=== PATIENT | male | born 1950 | race Caucasian/White ===

== ENCOUNTER 2023-09-22 12:29 | Inpatient (IN) | payer MEDICARE, MEDICAID, SELFPAY ==
[2023-09-22] VITALS (9 sets, daily range): BP systolic 109–176; BP diastolic 61–147; PULSE 100–126; RESP 20–34; TEMP 36.6–36.8; O2SAT 91–95; BMI 24.3; BMI 27.6
--- NOTE | 2023-09-22 12:37 | XR_ITS ---
WS: [id number] Exam: XR chest 1V portable [id number] Date/Time of Exam: 09/22/2023 1:03 PM Reason For Exam: sob No priors. Interstitial and airspace infiltrates in the mid and lower LEFT lung and also of the RIGHT basal bucky on. Questionable discrete nodule in the mid LEFT lung. The lungs are fully expanded. No pleural effus ions. Normal cardiomediastinal silhouette. Bony structures are intact. IMPRESSION: 1. Bilateral airspace and interstitial infiltrates as noted above. These changes may represent active pneumonia but could also be chronic. No comparisons available. 2. Discrete 15 mm nodular density in the mid LEFT lung. Recommendations: A detailed PA and lateral chest in 10 days to 2 weeks would be recommended for [facility] er work-up. Ultimately, chest CT may be necessary for further evaluation.
--- NOTE | 2023-09-22 12:43 | ED_ITS ---
HPI - Abdominal Pain 2 General: Chief Complaint: Abdominal Pain Stated Complaint: ABD PAIN Time Seen by Provider: 09/22/23 12:30 Source: patient Mode of arrival: ambulatory Limitations: no limitations History of Present Illness: 73-year-old male is here from nursing me he has a history of dementia per halfway patient complained of some abdominal pain at the halfway here patient has no complaints he is able to tell me his name and the year. Patient is hypoxic here with some tachycardia he denies shortness of breath but he did get short of breath when he walked to the cot history is not really reliable due to his dementia Associated Symptoms: Denies chills, diarrhea, fever(s), nausea and vomiting Review of Systems 2 Const: Denies: fever(s), chills, body aches or change in appetite ENMT: Denies: throat pain or dental pain Card: Denies: chest pain Resp: Denies: dyspnea GI: Denies: abdominal pain, nausea, vomiting or diarrhea Musc: Denies: neck pain or back pain Skin/Breast: Denies: rash Neuro: Denies: headache(s) PFSH ED 2 PFSH: Medical History (Updated 09/22/23 @ 15:25 by George Blum MD) History of COPD History of gastroesophageal reflux (GERD) Surgical History (Updated 09/22/23 @ 15:26 by George Blum MD) No pertinent past surgical history Family History (Updated 09/22/23 @ 15:26 by George Blum MD) Father Accident Social History Smoking and tobacco/nicotine status: former use of tobacco/nicotine Alcohol intake: never Substance/Drug Use: never Physical Exam 2 Const: COMMON NORMALS: no acute distress, patient oriented x3 and healthy appearing HENMT: COMMON NORMALS: normocephalic and atraumatic HEAD & SCALP: n ormocephalic and atraumatic Neck/C-Spine: COMMON NORMALS: full ROM and supple Chest: COMMONS NORMALS: normal inspection of the chest Resp: COMMON NORMALS: normal respiratory effort Cardio: COMMON NORMALS: regular rhythm and No murmurs present (Cardio) R ATE: tachycardic RHYTHM: regular rhythm GI: COMMON NORMALS: Normal to inspection, nondistended, normoactive bowel sounds present, Soft to palpation, non-tender and no masses PALPATION: Yes Soft to palpation Extremity: COMMON NORMALS: normal to inspection and full ROM Neuro: COMMON NORMALS: patient oriented x3, moves all extremities and no focal motor deficits Psych: COMMON NORMALS: mental status grossly normal, Normal thought process present and cooperative THOUGHT PROCESS: Normal thought process present Skin: COMMON NORMALS: no rashes or lesions noted and no wounds GENERAL SKIN EXAM: no rashes or lesions noted Course 2 Vital Signs: Vital signs: Vital Signs Temperature 98.3 F 09/22/23 12:30 Pulse Rate 121 H 09/22/23 15:01 Respiratory Rate 28 H 09/22/23 14:38 Blood Pressure 176/147 09/22/23 15:01 Pulse Oximetry 91 09/22/23 15:01 Oxygen Delivery Me thod Room Air 09/22/23 15:01 MDM - Abdominal Pain Medical Decision Making Patient presents here from halfway he is found to have pneumonia he is requiring oxygen here as well with an elevated white count did start him on antibiotics spoke to the hospitalist and will admit. Medical Records I reviewed the patient's medical records. Lab Data I reviewed the patient's lab results. 09/22/23 12:49 09/22/23 12:49 Labs/Radiology: Laboratory Results WBC 17.47 10^3/uL (3.29-11.43) H 09/22/23 12:49 RBC 4.41 10^6/uL (3.85-5.65) 09/22/23 12:49 Hgb 12.80 g/dL (11.27-16.99) 09/22/23 12:49 Hct 38.1 % (37-53) 09/22/23 12:49 MCV 86.4 fl (82-101) 09/22/23 12:49 MCH 29.0 pg (27-33) 09/22/23 12:49 MCHC 33.6 g/dL (30-55) 09/22/23 12:49 RDW 14.1 % (12.1-15.1) 09/22/23 12:49 Plt Count 332 10^3/cmm (157-399) 09/22/23 12:49 MPV 9.9 fL (7.4-10.4) 09/22/23 12:49 Neut % (Auto) 81.7 % 09/22/23 12:49 Lymph % (Auto) 5.0 % 09/22/23 12:49 Cottle % (Auto) 8.0 % 09/22/23 12:49 Eos % (Auto) 0.5 % 09/22/23 12:49 Baso % (Auto) 0.3 % 09/22/23 12:49 Neut # (Auto) 14.28 10^3/uL (1.8-7.7) H 09/22/23 12:49 Lymph # (Auto) 0.9 10^3/uL (0.8-4.8) 09/22/23 12:49 Cottle # (Auto) 1.4 10^3/uL (0.2-0.9) H 09/22/23 12:49 Eos # (Auto) 0.1 10^3/uL (0.0-0.8) 09/22/23 12:49 Baso # (Auto) 0.1 10^3/uL (0.0-0.1) 09/22/23 12:49 Nucleated RBC % (auto) 0 % 09/22/23 12:49 Nucleated RBCs # 0.0 /100WBC 09/22/23 12:49 PT 14.20 SECONDS (12.1-14.9) 09/22/23 12:49 INR 1.07 (0.8-1.2) 09/22/23 12:49 D-Dimer 3.81 ug/mLFEU (0-0.59) H 09/22/23 12:49 Specimen Type Arterial 09/22/23 13:06 Sample Site Radial, left 09/22/23 13:06 ABG pH 7.50 (7.35-7.45) H 09/22/23 13:06 ABG pCO2 28.8 mmHg (35-45) L 09/22/23 13:06 ABG pO2 56.3 mmHg (80.0-100.0) L 09/22/23 13:06 ABG PO2/FiO2 Ratio 0 09/22/23 13:06 ABG HCO3 22.7 mmol/L (22-26) 09/22/23 13:06 ABG Base Excess 0.5 mmol/L (-2.0-2.0) 09/22/23 13:06 Joaquin Test Pos 09/22/23 13:06 Hematocrit 39.3 % (42-52) L 09/22/23 13:06 O2 Delivery Device Room air 09/22/23 13:06 FiO2 21.0 % 09/22/23 13:06 Urology Teacher ID Cak 09/22/23 13:06 Sodium 137 mmol/L (136-145) 09/22/23 12:49 Potassium 4.7 mmol/L (3.5-5.1) 09/22/23 12:49 Chloride 101 mmol/L (98-107) 09/22/23 12:49 Carbon Dioxide 23 mmol/L (22-29) 09/22/23 12:49 Anion Gap 17.7 (5-19) 09/22/23 12:49 BUN 12 mg/dL (8-23) 09/22/23 12:49 Creatinine 0.7 mg/dL (0.7-1.2) 09/22/23 12:49 GFR Calculation Not Reportable 09/22/23 12:49 Glucose 195 mg/dL (65-115) H 09/22/23 12:49 Calculated Osmolality 289 mOsm/kg (285-295) 09/22/23 12:49 Calcium 9.0 mg/dL (8.5-10.5) 09/22/23 12:49 Total Bilirubin 0.9 mg/dL (0.15-1.2) 09/22/23 12:49 AST 5 U/L (0-40) 09/22/23 12:49 ALT 22 U/L (0-41) 09/22/23 12:49 Alkaline Phosphatase 255 U/L (40-130) H 09/22/23 12:49 NT-Pro-B Natriuret Pep 205 pg/mL (0-125) H 09/22/23 12:49 Total Protein 7.2 g/dL (6.6-8.7) 09/22/23 12:49 Albumin 3.1 g/dL (3.5-5.2) L 09/22/23 12:49 Globulin 4.1 g/dL (1.3-4.6) 09/22/23 12:49 Lipase 35 U/L (13-60) 09/22/23 12:49 TSH 1.04 uIU/mL (0.27-4.20) 09/22/23 12:49 All radiology interpretation(s) finalized by discharge EKG Data EKG 1: I personally reviewed and interpreted this EKG as follows: EKG interpretation date: 09/22/23 EKG interpretation time: 13:09 Interpretation: sinus tach hr 121 qrs 83 qtc 389 Discharge Plan Discharge Condition: Stable Prescriptions: No Action acetaminophen 325 mg Tablet 325 mg PO QID PRN (Reason: Pain) Provera 5 mg Tablet 5 mg PO DAILY melatonin 3 mg Tablet 3 mg PO BEDTIME famotidine 20 mg tablet 20 mg PO DAILY amitriptyline 25 mg tablet 25 mg PO QPM Milk of Magnesia 400 mg/5 mL Suspension 15 ml PO DAILY PRN (Reason: Constipation) Dulcolax (bisacodyl) 10 mg Suppository 10 mg [place] DAILY PRN (Reason: Constipation) Dulcolax (bisacodyl) 5 mg Tablet,Delayed Release (Dr/Ec) 5 mg PO DAILY PRN (Reason: Constipation) Remeron 15 mg Tablet 15 mg PO QPM Mylanta 200-200-20 mg/5 mL Suspension 15 ml PO QID PRN (Reason: Constipation) Rx Instructions: administer between meals and at bedtime Miralax 17 gram/dose Powder 4 g PO DAILY hydroxyzine pamoate 25 mg capsule 25 mg PO BID Vitamin D3 25 mcg (1,000 unit) Capsule 25 mcg PO DAILY magnesium 200 mg Tablet 400 mg PO DAILY CoQ-10 100 mg Capsule 100 mg PO DAILY Fish Oil 300-1,000 mg Capsule 1 cap PO DAILY Mucinex 600 mg Tablet Extended Release 12hr 600 mg PO Q12H PRN (Reason: Congestion) Coding Level of Care Code ED Medical Management Specialist for Octaviano Horton
[2023-09-22 13:01] LABS: Basophils # 0.1 10^3/uL (0.0-0.1); Basophils % 0.3 %; Eosinophils # 0.1 10^3/uL (0.0-0.8); Eosinophils % 0.5 %; Hematocrit 38.1 % (37-53); Lymphocytes # 0.9 10^3/uL (0.8-4.8); Mean Corpuscular HGB Conc 33.6 g/dL (30-55); Mean Corpuscular Volume 86.4 fl (82-101); Mean Platelet Volume 9.9 fL (7.4-10.4); Monocytes # 1.4 10^3/uL (0.2-0.9); Neutrophils # 14.28 10^3/uL (1.8-7.7); Neutrophils % 81.7 %; Nucleated Red Blood Cells % 0 %; Platelet Count 332 10^3/cmm (157-399); Red Blood Count 4.41 10^6/uL (3.85-5.65); Red Cell Distribution Width 14.1 % (12.1-15.1); White Blood Count 17.47 10^3/uL (3.29-11.43)
--- NOTE | 2023-09-22 13:09 | ECG_ITS ---
[facility] Test Date: 2023-09-22 Pat Name: Diogo Suarez Department: Room: Gender: Male Patient Care Associate: : 1950 Requested By: Kyler Matos Order Number: [id number] Giorgi MD: Salvador Yeh M.D. Measurements Intervals [place] Rate: 121 P: 51 TX: 154 QRS: -2 QRSD: 83 T: 61 QT: 317 QTc: 451 Interpretive Statements SINUS TACHYCARDIA No previous ECG available for comparison Electronically Signed On 09-22-2023 16:14:06 CDT by Salvador Yeh M.D. [id number] f
[2023-09-22 13:16] LABS: INR 1.07 (0.8-1.2)
[2023-09-22 13:17] LABS: ABG PCO2 28.8 mmHg (35-45); Arterial Blood Gas Hematocrit 39.3 % (42-52); Base Excess ABG 0.5 mmol/L (-2.0-2.0); Blood Gas Allen Test Pos; Blood Gas Operator Identificat CAK; Blood Gas Sample Site Radial, left; Blood Gas Sample Type Arterial; HCO3 ABG 22.7 mmol/L (22-26); Oxygen Device ROOM AIR; PO2 ABG 56.3 mmHg (80.0-100.0); PO2 FiO2 Ratio Arterial Blood 0
[2023-09-22 13:26] LABS: D Dimer 3.81 ug/mLFEU (0-0.59)
--- NOTE | 2023-09-22 13:28 | CT_ITS ---
WS: [id number] CTA OF THE CHEST WITH PULMONARY EMBOLISM PROTOCOL TECHNIQUE: High-resolution contrast enhanced CTA of the chest with coronal and sagittal reformatted i mages with pulmonary embolism protocol. MIP images are also reviewed. CLINICAL INFORMATION: sob COMPARISON: None. DLP: 353.[address] scans at [facility] use at least one of these dose optimization techniques: automated e xposure control; mA and/or kV adjustment per patient size (includes targeted exams where dose is matc hed to clinical indication); or iterative reconstruction. FINDINGS: Some images degraded by beam hardening artifact. Proximal main pulmonary arteries are normal. Normal segmental and subsegmental pulmonary arteries. No evidence of pulmonary embolus. Normal caliber thoracic aorta. Aortic calcification. Coronary calcifi cation. Few prominent paratracheal lymph nodes likely reactive. No lymphadenopathy. No axillary lymph adenopathy. Small esophageal hiatal hernia. Adrenal glands are normal. Celiac and SMA are patent. Mild thoracic k yphosis. Advanced chronic emphysematous changes. Patchy interstitial infiltrates in the LEFT greater than RIGHT lower lobes. Recommend correlation for pneumonia. Fibrotic appearing infiltrates in the RI GHT upper lobe anteriorly and RIGHT middle lobe. Noncalcified subpleural nodule RIGHT lower lobe valerio uring 5 mm. IMPRESSION: 1. No evidence of pulmonary embolus. 2. Advanced chronic emphysematous changes with fibrotic appearing interstitial infiltrates in the LE FT greater than RIGHT lower lobes and RIGHT middle lobe. Recommend correlation for pneumonia. Conside r pulmonary consultation for interstitial lung disease. 3. Noncalcified subpleural nodule RIGHT lower lobe measuring 5 mm. Recommend 12-month follow-up ches t CT. 4. A few reactive paratracheal lymph nodes. 5. Small esophageal hiatal hernia. 6. No other acute findings.
[2023-09-22 13:38] LABS: Alanine Aminotransferase 22 U/L (0-41); Albumin Level 3.1 g/dL (3.5-5.2); Alkaline Phosphatase 255 U/L (40-130); Anion Gap 17.7 (5-19); Blood Urea Nitrogen 12 mg/dL (8-23); Carbon Dioxide 23 mmol/L (22-29); Chloride 101 mmol/L (98-107); Creatinine Clr Calc Pharmacy 82.7215; Globulin 4.1 g/dL (1.3-4.6); Glucose 195 mg/dL (65-115); Lipase 35 U/L (13-60); NT Pro B Type Natriuretic Pept 205 pg/mL (0-125); Osmolality Calculated 289 mOsm/kg (285-295); Potassium 4.7 mmol/L (3.5-5.1); Sodium 137 mmol/L (136-145); Thyroid Stimulating Hormone 1.04 uIU/mL (0.27-4.20); Total Bilirubin 0.9 mg/dL (0.15-1.2); Total Protein 7.2 g/dL (6.6-8.7)
[2023-09-22 13:47] LABS: Aspartate Amino Transferase 5 U/L (0-40)
[2023-09-22] MEDS: sodium chloride 0.9% 1,000 ML 999 ML IV (13:47)
[2023-09-22] MEDS: cefTRIAXone 1,000 MG in sodium chloride 0.9% (plus) 50 ML 100 MG IV (13:48)
[2023-09-22] MEDS: iohexol 350 mg/mL 500 mL Btl (per mL) IV (14:14)
[2023-09-22] MEDS: ipratropium-albuterol 3 mL Neb INHALATION ×2 (14:37→19:56)
[2023-09-22] MEDS: azithromycin 500 MG in sodium chloride 0.9% 250 ML 250 MG IV (14:59)
--- NOTE | 2023-09-22 15:22 | P.HP_ITS ---
Providers/Chief Complaint 2 Chief Complaint: ABD PAIN History of Present Illness Diogo Suarez is a 73 year old male with past medical history of smoking, history of COPD, no history of heart disease no history of stroke no history of diabetes, recently a resident at [facility] who presents [facility] due to shortness of breath, fatigue, malaise, abdominal pain. Currently patient is short of breath, tachypneic, tachycardic, nasal flaring, intercostal retractions, has diffuse wheezing, he is on room air, saturating in the high 90s, hypertensive blood pressures 170s over 100s, has received hydralazine, patient tells me that he is here in the hospital as he is felt increasingly short of breath, he also complains of abdominal pain, feeling nauseous, no diarrhea, no constipation, no bloody or black stools, Review of Systems 2 Const: Reports: fever(s), chills, fatigue and malaise Card: Reports: palpitations; Denies: chest pain Resp: Reports: dyspnea and non-productive cough GI: Reports: abdominal pain, nausea and vomiting; Denies: diarrhea, bloating, pain on defecation, hematochezia or melena : Denies: flank pain Musc: Denies: back pain Neuro: Denies: headache(s) Endo: Denies: polyuria Medications/Allergies Home Medications Medication Instructions Recorded Confirmed Last Taken Type acetaminophen 325 mg tablet 325 mg PO QID PRN Pain 09/22/23 09/22/23 Unknown History aluminum-mag hydroxide-simethicone 15 ml PO QID PRN Constipation 09/22/23 09/22/23 Unknown History 200 mg-200 mg-20 mg/5 mL oral susp amitriptyline 25 mg tablet 25 mg PO QPM 09/22/23 09/22/23 09/21/23 History bisacodyl 10 mg rectal suppository 10 mg SD DAILY PRN Constipation 09/22/23 09/22/23 Unknown History (Dulcolax (bisacodyl)) bisacodyl 5 mg tablet,delayed 5 mg PO DAILY PRN Constipation 09/22/23 09/22/23 Unknown History release (Dulcolax (bisacodyl)) cholecalciferol (vitamin D3) 25 25 mcg PO DAILY 09/22/23 09/22/23 09/22/23 History mcg (1,000 unit) capsule (Vitamin D3) coenzyme Q10 100 mg capsule 100 mg PO DAILY 09/22/23 09/22/23 09/22/23 History (CoQ-10) famotidine 20 mg tablet 20 mg PO DAILY 09/22/23 09/22/23 09/22/23 History guaifenesin 600 mg tablet, 600 mg PO Q12H PRN Congestion 09/22/23 09/22/23 09/22/23 History extended release 12 hr (Mucinex) hydroxyzine pamoate 25 mg capsule 25 mg PO BID 09/22/23 09/22/23 09/22/23 History magnesium 200 mg tablet 400 mg PO DAILY 09/22/23 09/22/23 09/22/23 History magnesium hydroxide 400 mg/5 mL 15 ml PO DAILY PRN Constipation 09/22/23 09/22/23 Unknown History oral suspension (Milk of Magnesia) medroxyprogesterone 5 mg tablet 5 mg PO DAILY 09/22/23 09/22/23 09/22/23 History (Provera) melatonin 3 mg tablet 3 mg PO BEDTIME 09/22/23 09/22/23 09/21/23 History mirtazapine 15 mg tablet (Remeron) 15 mg PO QPM 09/22/23 09/22/23 09/21/23 History omega 6-zvs-tvh-fish oil 300 1 cap PO DAILY 09/22/23 09/22/23 09/21/23 History mg-1,000 mg capsule (Fish Oil) polyethylene glycol 3350 17 4 g PO DAILY 09/22/23 09/22/23 09/22/23 History gram/dose oral powder (Miralax) Allergies Allergy/AdvReac Type Severity Reaction Status Date / Time No Known Allergies Allergy Verified 09/22/23 13:47 PFSH Acute 2 PFSH: Medical History (Updated 09/22/23 @ 15:29 by George Blum MD) History of COPD History of gastroesophageal reflux (GERD) Surgical History (Updated 09/22/23 @ 15:26 by George Blum MD) No pertinent past surgical history Family History (Updated 09/22/23 @ 15:26 by George Blum MD) Father Accident Social History (Updated 09/22/23 @ 15:26 by George Blum MD) Smoking and tobacco/nicotine status: former use of tobacco/nicotine Alcohol intake: never Substance/Drug Use: never Vitals/I&O/Wt Last Vital Signs Temp 98.3 F 09/22/23 12:30 Pulse 121 H 09/22/23 15:01 Resp 28 H 09/22/23 14:38 BP 176/147 09/22/23 15:01 Pulse Ox 91 09/22/23 15:01 O2 Del Method Room Air 09/22/23 15:01 09/22/23 09/22/23 09/22/23 06:59 14:59 22:59 Intake Total 50 / 50 Balance 50 / 50 Weight last 48 hrs Weight 72.575 kg Physical Exam 2 Const: COMMON NORMALS: no acute distress and patient oriented x3 HENMT: COMMON NORMALS: normocephalic HEAD & SCALP: normocephalic Eye: COMMON NORMALS: Equal, round and reactive pupils present and EOMs intact bilaterally Neck/C-Spine: COMMON NORMALS: no JVD Lymph: LYMPHATIC: no lymphadenopathy noted Resp: EFFORT & INSPECTION: Yes abnormal respiratory pattern, Yes tachypneic, Yes respiratory distress, Yes retractions, Yes uses accessory muscles and Yes audible wheezes AUSCULTATION: crackles and wheezes OTHER: mild respiratory distress, suprasternal retractions, intercostal retractions, tachypnea, Cardio: COMMON NORMALS: no JVD, regular rhythm, S1 normal heart sound present and S2 normal heart sound present RATE: tachycardic RHYTHM: regular rhythm HEART SOUNDS: S1 normal heart sound present and S2 normal heart sound present GI: OTHER: Abdomen soft, distended, good bowel sounds, no guarding, no rebound, rigidity, has diffuse tenderness Extremity: COMMON NORMALS: no calf tenderness and no pedal edema Neuro: COMMON NORMALS: patient oriented x3, CN's II-XII intact bilaterally, moves all extremities and no focal motor deficits Psych: COMMON NORMALS: mental status grossly normal Data 09/22/23 12:49 09/22/23 12:49 Micro: Microbiology 09/22/23 13:47 Blood Culture - Preliminary Blood SPECIMEN COLLECTED 09/22/23 13:44 Blood Culture - Preliminary Blood SPECIMEN COLLECTED A&P Assessment and plan (1) Acute respiratory failure: (2) Pulmonary fibrosis: (3) Pneumonia: (4) Hypertensive urgency: (5) Abdominal pain: Plan Acute respiratory distress ? Secondary to pneumonia, COPD exacerbation, pulmonary fibrosis exacerbation ? Clinically looks in respiratory distress, with tachycardia heart rates in the 120s, respiratory 28, intercostal retractions, suprasternal retractions, nasal flaring, short of breath with a few words, sitting up to the side of the bed, ? ABG pH 7.5, pO2 56.3 on room air ? CT angiogram of the chest IMPRESSION: 1. No evidence of pulmonary embolus. 2. Advanced chronic emphysematous changes with fibrotic appearing interstitial infiltrates in the LEFT greater than RIGHT lower lobes and RIGHT middle lobe. Recommend correlation for pneumonia. Consider pulmonary consultation for interstitial lung disease. 3. Noncalcified subpleural nodule RIGHT lower lobe measuring 5 mm. Recommend 12-month follow-up chest CT. 4. A few reactive paratracheal lymph nodes. 5. Small esophageal hiatal hernia. 6. No other acute findings. -Prior history of COPD, ? No documented history of pulmonary fibrosis ? Plan, ? Rocephin Azithromycin ? Sputum cultures ? Blood cultures, -Troponin series ? Solu-Medrol 125 followed by 40 mg IV every 8 hours ? DuoNeb, budesonide ? Monitor respiratory status closely ? Respiratory therapy eval Hypertensive urgency, blood pressure is 176/47 when patient arrived, currently 176/70, ? Start Norvasc 10 mg p.o. daily Full code ? Lovenox for DVT prophylaxis Attestations 2 Medical Necessity Statement*: Patient requires hospitalization, inpatient, greater than 2 midnights, for acute respiratory failure, pneumonia, hypertensive urgency, abdominal pain Diagnoses Acute respiratory failure J96.00 Pulmonary fibrosis J84.10 Pneumonia J18.9 Hypertensive urgency I16.0 Abdominal pain R10.9
--- NOTE | 2023-09-22 15:23 | ECG_ITS ---
[facility] Test Date: 2023-09-22 Pat Name: Diogo Suarez Department: Room: Gender: Male Facility Sales And Admin: : 1950 Requested By: George Blum Order Number: [id number] Giorgi MD: Salvador Yeh M.D. Measurements Intervals [place] Rate: 128 P: 69 RI: 172 QRS: 24 QRSD: 97 T: 64 QT: 307 QTc: 449 Interpretive Statements SINUS TACHYCARDIA INCOMPLETE RIGHT BUNDLE BRANCH BLOCK [90+ ms QRS DURATION, TERMINAL R IN V1/V2, 40+ ms S IN I/aVL/V4/V5/V6] Compared to ECG 09/22/2023 13:09:34 Incomplete right bundle-branch block now present Electronically Signed On 09-22-2023 16:13:19 CDT by Salvador Yeh M.D. [id number]
[2023-09-22] MEDS: hyDRALAzine 20 mg/mL INJ 1 mL 10 MG IVP (15:24)
--- NOTE | 2023-09-22 15:28 | CTR_ITS ---
PROCEDURE INFORMATION: Exam: CT Abdomen And Pelvis Without Contrast Exam date and time: 09/22/2023 3:35 PM Age: 73 years old Clinical indication: Bloating; Additional info: Abdominal distention TECHNIQUE: Imaging protocol: Computed tomography of the abdomen and pelvis without contrast. Radiation optimization: All CT scans at this facility use at least one of these dose optimization techniques: automated exposure control; mA and/or kV adjustment per patient size (includes targeted exams where dose is matched to clinical indication); or iterative reconstruction. COMPARISON: CT angio chest PE protcl [id number] 09/22/2023 2:11 PM RADIATION DOSE METRICS: Total DLP (mGy-cm): 512.69 FINDINGS: Liver: Normal. No mass. Gallbladder and bile ducts: Normal. No calcified stones. No ductal dilation. Pancreas: Normal. No ductal dilation. Spleen: Normal. No splenomegaly. Adrenal glands: Normal. No mass. Kidneys and ureters: A 2 cm simple cyst in the lower right kidney needs no follow-up. Contrast in the kidneys and ureters makes it difficult to exclude a small renal or ureteral calculus, but the ureters are not dilated, and there is no hydronephrosis, so there is very likely not such a calculus. Otherwise, unremarkable. Stomach and bowel: Diverticula from the colon. No acute diverticulitis. Otherwise, unremarkable. Appendix: No evidence of appendicitis. Intraperitoneal space: Unremarkable. No free air. No significant fluid collection. Vasculature: Moderate amount of arterial calcification. Otherwise, grossly unremarkable. Lymph nodes: Unremarkable. No enlarged lymph nodes. Urinary bladder: Unremarkable as visualized. Reproductive: Unremarkable as visualized. Bones/joints: Mild-moderate scoliosis. Mild and moderate multilevel spondylosis. Otherwise, unremarkable. Soft tissues: Unremarkable visualized body wall. Otherwise, unremarkable soft tissues. CT/CT abdomen pelvis wo con [id number] IMPRESSION: 1. No acute findings obviously identified. 2. Additional details as above.
[2023-09-22 15:42] LABS: Erythrocyte Sedimentation Rate 30 mm/hr (0-10)
[2023-09-22 15:55] LABS: Troponin(5th) Baseline 15 ng/L (0-15)
[2023-09-22 15:58] LABS: Lactic Sepsis W/Reflex 2.1 mmol/L (0.5-2.2)
[2023-09-22 16:04] LABS: Procalcitonin 0.39 ng/mL (0-0.5)
--- NOTE | 2023-09-22 16:31 | PC.NURSE ---
Report was called to Jennifer WALLS on Med-Surg. All questions and concerns were addressed at time of report.
[2023-09-22] MEDS: mirtazapine 15 mg Tablet PO (17:19)
[2023-09-22] MEDS: amlodipine 10 mg Tablet PO (17:19)
[2023-09-22] MEDS: amitriptyline 25 mg Tablet PO (17:19)
[2023-09-22] MEDS: enoxaparin 40 mg/0.4 mL Syringe SUBCUT (17:20)
[2023-09-22] MEDS: methylPREDNISolone sod succ 125 mg/2 mL INJ IVP (17:20)
[2023-09-22] MEDS: pantoprazole 40 mg SDV IVP (17:20)
[2023-09-22 17:22] LABS: Reflex Lactate Order REFLEX LACTIC ORDERD
[2023-09-22 19:36] LABS: Lactic Acid level (Lactate) 2.8 mmol/L (0.5-2.2)
[2023-09-22] MEDS: budesonide 0.5 mg/2 mL Neb INHALATION (19:56)
[2023-09-22 20:16] LABS: Estmated Average Glucose 123; Hemoglobin A1C 5.9 % (4.0-6.0)
[2023-09-22 20:19] LABS: Adenovirus Not Detected (NOT DETECT); Chlamydia Pneumoniae Not Detected (NOT DETECT); Coronavirus 229E,HKU1,NL63,OC4 Not Detected (NOT DETECT); Human Metapneumovirus Not Detected (NOT DETECT); Human Rhinovirus/Enterovirus Not Detected (NOT DETECT); Influenza A Not Detected (NOT DETECT); Influenza A H1 Not Detected (NOT DETECT); Influenza A H1-2009 Not Detected (NOT DETECT); Influenza A H3 Not Detected (NOT DETECT); Influenza B Not Detected (NOT DETECT); Mycoplasma Pneumoniae Not Detected (NOT DETECT); Parainfluenza Virus Type 1 Not Detected (NOT DETECT); Parainfluenza Virus Type 2 Not Detected (NOT DETECT); Parainfluenza Virus Type 3 Not Detected (NOT DETECT); Parainfluenza Virus Type 4 Not Detected (NOT DETECT); Respiratory Syncytial Virus A Not Detected (NOT DETECT); SARS-COV-2 Not Detected (NOT DETECT)
[2023-09-22 20:24] LABS: Troponin 5 6HR 28.38 ng/L (0-15)
[2023-09-22 20:28] LABS: Troponin 5 6HR Delta 13.38 ng/L (0-12)
[2023-09-22 20:55] LABS: Respiratory Syncytial Virus B Detected (NOT DETECT)
[2023-09-22 21:13] LABS: Chol HDL Ratio 2.82 mg/dL (1.0-5.00); Cholesterol 93 mg/dL (0-200); HDL Cholesterol 33 mg/dL (60-100); LDL Cholesterol Calculated 46 mg/dL (50-129); LDL HDL Ratio 1.39 RATIO (0.00-3.22); Thyroid Stimulating Hormone 1.08 uIU/mL (0.27-4.20); Triglycerides 71 mg/dL (0-150)
--- NOTE | 2023-09-22 21:17 | ECG_ITS ---
[facility] Test Date: 2023-09-22 Pat Name: Diogo Suarez Department: Room: 279 Gender: Male Asset Availability Leader: : 1950 Requested By: George Blum Order Number: [id number] Giorgi MD: Salvador Yeh M.D. Measurements Intervals [place] Rate: 124 P: 63 GA: 153 QRS: 1 QRSD: 85 T: 55 QT: 330 QTc: 474 Interpretive Statements SINUS TACHYCARDIA NON-SPECIFIC ST T WAVE CHANGES No previous ECG available for comparison Electronically Signed On 09-23-2023 12:38:23 CDT by Salvador Yeh M.D. [id number]
[2023-09-23] VITALS (11 sets, daily range): BP systolic 100–126; BP diastolic 56–76; PULSE 93–122; RESP 16–26; TEMP 36.4–36.7; O2SAT 87–96
[2023-09-23] MEDS: methylPREDNISolone sod succ 40 mg/mL INJ IVP ×3 (05:47→21:33)
[2023-09-23 05:55] LABS: Basophils # 0.1 10^3/uL (0.0-0.1); Basophils % 0.3 %; Lymphocytes # 0.8 10^3/uL (0.8-4.8); Lymphocytes % 4.2 %; Mean Corpuscular HGB Conc 33.6 g/dL (30-55); Mean Corpuscular Hemoglobin 28.9 pg (27-33); Mean Corpuscular Volume 86.1 fl (82-101); Mean Platelet Volume 10.1 fL (7.4-10.4); Monocytes # 0.4 10^3/uL (0.2-0.9); Monocytes % 2.2 %; Neutrophils % 89.6 %; Nucleated Red Blood Cells % 0 %; Platelet Count 354 10^3/cmm (157-399); Red Blood Count 4.53 10^6/uL (3.85-5.65); Red Cell Distribution Width 14.2 % (12.1-15.1); White Blood Count 18.07 10^3/uL (3.29-11.43)
[2023-09-23 06:08] LABS: INR 1.13 (0.8-1.2)
[2023-09-23 06:17] LABS: Troponin T (5th) Once 19 ng/L (0-15)
[2023-09-23 06:20] LABS: Alanine Aminotransferase 16 U/L (0-41); Alkaline Phosphatase 79 U/L (40-130); Aspartate Amino Transferase 22 U/L (0-40); Blood Urea Nitrogen 13 mg/dL (8-23); Calcium 8.8 mg/dL (8.5-10.5); Carbon Dioxide 20 mmol/L (22-29); Chloride 104 mmol/L (98-107); Creatinine Clr Calc Pharmacy 85.9345; Globulin 3.3 g/dL (1.3-4.6); Glucose 168 mg/dL (65-115); Magnesium 1.9 mg/dL (1.7-2.3); Osmolality Calculated 294 mOsm/kg (285-295); Sodium 140 mmol/L (136-145); Total Bilirubin 0.8 mg/dL (0.15-1.2); Total Protein 6.3 g/dL (6.6-8.7)
[2023-09-23 06:31] LABS: NT Pro B Type Natriuretic Pept 664 pg/mL (0-125)
--- NOTE | 2023-09-23 08:56 | USCV_ITS ---
Diogo Suarez Age: 73 Gender: M : 1950 Exam Date: 09/23/2023 09:34 Ordering Phys: George Blum MD Technologist: SWETHA Exam Location: [facility] [place] Indication: NSTEMI, RBBB, SOB BP: 126 / 76 HR: 100 Rhythm: Sinus Technical Quality: Adequate MEASUREMENTS (Male / Female) Normal Values 2D ECHO LV Diastolic Diameter PLAX 3.8 cm 4.2 - 5.9 / 3.9 - 5.3 cm IVS Diastolic Thickness 0.9 cm 0.6 - 1.0 / 0.6 - 0.9 cm IVS Systolic Thickness 1.7 cm LVPW Diastolic Thickness 2.1 cm 0.6 - 1.0 / 0.6 - 0.9 cm LVPW Systolic Thickness 2.7 cm LVOT Diameter 2.0 cm LV Ejection Fraction 2D Teich 66.2 % LV Ejection Fraction MOD 2C 58.8 % LV Ejection Fraction 2C AL 58.3 % LA Diameter 2.7 cm RA Systolic Volume 4C AL 22.1 ml RA Systolic Volume 4C MOD 21.2 ml Aorta at Sinotubular Diameter 2.6 cm M-MODE LA Ao Ratio MM 1.0 AV Cusp Separation MM 1.7 cm DOPPLER AV Peak Velocity 163.0 cm/s LVOT Peak Velocity 97.0 cm/s AV Area Cont Eq vti 1.7 cm squared AV Area Cont Eq pk 1.8 cm squared MV Peak Velocity 127.0 cm/s MV Area PHT 7.0 cm squared Mitral E to A Ratio 0.7 TR Peak Velocity 207.0 cm/s TR Peak Gradient 17.1 mmHg TR Mean Velocity 176.0 cm/s TR Mean Gradient 13.0 mmHg TR Velocity Time Integral 48.7 cm TV Peak E Velocity 51.0 cm/s Right Atrial Pressure 3.0 mmHg Pulmonary Artery Systolic Pressu 20.1 mmHg PV Peak Velocity 124.0 cm/s RV Ejection Time 0.3 s FINDINGS Left Ventricle Normal left ventricular size and systolic function, EF 58%. No regional wall motion abnormalities. Grade I/IV diastolic dysfunction (abnormal relaxation filling pattern), normal to mildly elevated filling pressures. Right Ventricle The right ventricle is normal in size and function. Right Atrium The right atrium is normal in size. Left Atrium The left atrium is normal in size. Mitral Valve No gross abnormalities noted Aortic Valve Trace aortic valve regurgitation. Tricuspid Valve Trace tricuspid valve regurgitation. Estimated pulmonary artery peak systolic pressure 20 mmHg Pulmonic Valve No gross abnormalities noted Pericardium Normal pericardium without effusion. Aorta Normal ascending aorta dimension. IVC The inferior vena cava appears normal. CONCLUSIONS Normal left ventricular size and systolic function, EF 58%. No regional wall motion abnormalities. Grade I/IV diastolic dysfunction (abnormal relaxation filling pattern), normal to mildly elevated filling pressures. Trace aortic valve regurgitation. Trace tricuspid valve regurgitation. Estimated pulmonary artery peak systolic pressure 20 mmHg. There is no pericardial effusion. There are no intracardiac masses. No similar previous studies are available for comparison Dr Mer Centeno MD [facility] (Electronically Signed) Final Date: 23 September 2023 13:52 S
[2023-09-23] MEDS: ipratropium-albuterol 3 mL Neb INHALATION ×4 (09:12→20:32)
[2023-09-23] MEDS: budesonide 0.5 mg/2 mL Neb INHALATION ×2 (09:12→20:32)
--- NOTE | 2023-09-23 09:13 | PC.CHAP ---
Pastoral Care Encounter/Spiritual Assessment Type of Contact [] Declined wool spotter visit [] Patient/Family/Request visit [] Outpatient visit [] Follow-up visit [] Physician referral [] Code/Alert [] Routine visit [] Staff referral [] Actively dying [] Patient sleeping [] Family support [] [] Out of room [] Palliative care [] [] Receiving care in room [] Pre-surgical visit [] Trauma [] Long length of stay [] ICU visit [x] Other:Contact precautions. No visit. Relational/Emotional Strength [] Patient feels connected with others/family/visitors/staff [] Distress [] Loneliness/isolation [] Abandonment Spirituality of Patient [] Person of Anna [] Attends Baptism of their Anna [] Believes in Prayer [] Reads Bible or Uatsdin materials [] There are Spiritual issues to be addressed Slide Machine Tender Interventions [] Prayer [] Active listening [] Non-anxious presence [] Spiritual/emotional support [] Crisis/trauma care [] Spiritual counseling [] Bereavement support [] Provided bereavement packet [] Provided Bible/devotional materials [] Provided toy/stuffed animal, coloring book to patient or family member [] Provided Communion [] Anointing/[place] [] Salvation [] Completed spiritual assessment [] Other: Impact on Illness or Injury [] Angry [] Fearful [] Anxious [] Often cries [] Exhaustion [] Unable to work [] Unable to attend pres[employer]beterian [] Unable to walk/stand [] Unable to read [] Unable to drive [] Unable to eat/drink [] Unable to sleep [] Unable to be with family [] Patient intubated [] Other: Summary Time spent with patient
--- NOTE | 2023-09-23 09:19 | ECG_ITS ---
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 Measurements Intervals [place] Rate: 103 P: 62 [place]: 144 QRS: -7 QRSD: 96 T: 55 QT: 341 QTc: 446 Interpretive Statements SINUS TACHYCARDIA LOW QRS VOLTAGE IN PRECORDIAL LEADS [QRS DEFLECTION < 1.0 mV IN CHEST LEADS] Compared to ECG 09/22/2023 15:23:57 Low QRS voltage now present Incomplete right bundle-branch block no longer present Electronically Signed On 09-23-2023 12:31:26 CDT by Salvador Yeh M.D. [id number]
[2023-09-23] MEDS: amlodipine 10 mg Tablet PO (10:42)
[2023-09-23] MEDS: aspirin 81 mg EC Tablet PO (10:48)
--- NOTE | 2023-09-23 10:57 | ECG_ITS ---
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 Measurements Intervals [place] Rate: 103 P: 60 IN: 153 QRS: -1 QRSD: 99 T: 55 QT: 352 QTc: 461 Interpretive Statements SINUS TACHYCARDIA INCOMPLETE RIGHT BUNDLE BRANCH BLOCK [90+ ms QRS DURATION, TERMINAL R IN V1/V2, 40+ ms S IN I/aVL/V4/V5/V6] ABNORMAL RHYTHM ECG Compared to ECG 09/23/2023 09:19:28 Incomplete right bundle-branch block now present Electronically Signed On 09-23-2023 12:32:11 CDT by Salvador Yeh M.D. [id number]
[2023-09-23 11:16] LABS: Troponin(5th) Baseline 17 ng/L (0-15)
[2023-09-23] MEDS: azithromycin 500 MG in sodium chloride 0.9% 250 ML 250 MG IV (13:07)
--- NOTE | 2023-09-23 13:54 | P.PN_ITS ---
Subjective 2 Subjective: Patient was seen this morning, he is alert to person, to place, not to time, initially he tells me that he is from home, then he corrects himself and tells me that he is from [facility], he does not know how long he has been there, he does not know the address, he does not know why he is there, he knows his name his date of , he tells me that he is healthy as a horse he has not been sick for the last 20 years, we discussed his pneumonia, here is RSV pneumonia, he denies any chest pain, no palpitations he does have sinus tachycardia, Vitals/I&O/Wt Last Vital Signs Temp 97.6 F 09/23/23 08:00 Pulse 122 H 09/23/23 11:46 Resp 26 H 09/23/23 11:46 BP 126/76 09/23/23 08:00 Pulse Ox 87 L 09/23/23 11:46 O2 Del Method Room Air 09/23/23 11:46 O2 Flow Rate 2 09/22/23 20:03 09/22/23 09/23/23 09/23/23 22:59 06:59 14:59 Intake Total 1250 / 1300 Balance 1250 / 1300 Weight last 48 hrs Weight 79.379 kg Weight 82.508 kg Weight 72.575 kg Physical Exam 2 Const: COMMON NORMALS: no acute distress Neck/C-Spine: COMMON NORMALS: no JVD Resp: COMMON NORMALS: normal respiratory effort, No retractions and No use of accessory muscles AUSCULTATION: crackles and wheezes Cardio: COMMON NORMALS: no JVD, regular rate, regular rhythm, S1 normal heart sound present and S2 normal heart sound present RATE: regular rate RHYTHM: regular rhythm HEART SOUNDS: S1 normal heart sound present and S2 normal heart sound present GI: COMMON NORMALS: Normal to inspection, nondistended, normoactive bowel sounds present and non-tender Extremity: COMMON NORMALS: no pedal edema Data 09/23/23 05:46 09/23/23 05:46 Micro: Microbiology 09/22/23 13:47 Blood Culture - Preliminary Blood SPECIMEN COLLECTED 09/22/23 13:44 Blood Culture - Preliminary Blood SPECIMEN COLLECTED A&P Assessment and plan (1) Acute respiratory failure: (2) Pulmonary fibrosis: (3) Pneumonia: (4) Hypertensive urgency: (5) Abdominal pain: (6) RSV (respiratory syncytial virus pneumonia): (7) NSTEMI (non-ST elevated myocardial infarction): (8) Acute encephalopathy: Plan Acute respiratory distress ? Secondary to pneumonia, COPD exacerbation, pulmonary fibrosis exacerbation -Secondary to RSV pneumonia ? Clinically improved this morning does have sinus tachycardia, resting comfortably ? ABG pH 7.5, pO2 56.3 on room air ? CT angiogram of the chest IMPRESSION: 1. No evidence of pulmonary embolus. 2. Advanced chronic emphysematous changes with fibrotic appearing interstitial infiltrates in the LEFT greater than RIGHT lower lobes and RIGHT middle lobe. Recommend correlation for pneumonia. Consider pulmonary consultation for interstitial lung disease. 3. Noncalcified subpleural nodule RIGHT lower lobe measuring 5 mm. Recommend 12-month follow-up chest CT. 4. A few reactive paratracheal lymph nodes. 5. Small esophageal hiatal hernia. 6. No other acute findings. -Prior history of COPD, ? No documented history of pulmonary fibrosis ? Plan, ? Rocephin Azithromycin ? Sputum cultures ? Blood cultures, ? Solu-Medrol 125 followed by 40 mg IV every 8 hours ? DuoNeb, budesonide ? Monitor respiratory status closely ? Respiratory therapy eval NSTEMI -Likely secondary respiratory distress as above -Serial EKGs, serial troponins, telemetry monitoring -Continue aspirin, statin -Cardiac echo Acute encephalopathy, ?could be secondary to underlying hypoxia, pneumonia, will do CT of the head Hypertensive urgency, blood pressure is 176/47 when patient arrived, currently 176/70, ? Start Norvasc 10 mg p.o. daily Full code ? Lovenox for DVT prophylaxis Attestations 2 Medical Necessity Statement*: Patient requires hospitalization for acute respiratory distress, RSV pneumonia, pneumonia, NSTEMI, encephalopathy Diagnoses Acute respiratory failure J96.00 Pulmonary fibrosis J84.10 Pneumonia J18.9 Hypertensive urgency I16.0 Abdominal pain R10.9 RSV (respiratory syncytial virus pneumonia) J12.1 NSTEMI (non-ST elevated myocardial infarction) I21.4 Acute encephalopathy G93.40
--- NOTE | 2023-09-23 13:54 | CTR_ITS ---
PROCEDURE INFORMATION: Exam: CT Head Without Contrast Exam date and time: 09/23/2023 2:25 PM Age: 73 years old Clinical indication: Altered mental status/memory loss; Additional info: AMS TECHNIQUE: Imaging protocol: Computed tomography of the head without contrast. Radiation optimization: All CT scans at this facility use at least one of these dose optimization techniques: automated exposure control; mA and/or kV adjustment per patient size (includes targeted exams where dose is matched to clinical indication); or iterative reconstruction. COMPARISON: No relevant prior studies available. RADIATION DOSE METRICS: Total DLP (mGy-cm): 1119.48 FINDINGS: Brain: No intracranial hemorrhage. There is global parenchymal volume loss. Periventricular white matter hypoattenuation is nonspecific but most likely due to small vessel disease. No evidence of acute territorial infarct or cerebral edema. No mass effect or midline shift. Cerebral ventricles: Prominent ventricles likely secondary to volume loss. Paranasal sinuses: Bilateral maxillary sinus air-fluid levels. Sphenoid sinus air-fluid level. Mild mucosal thickening in the ethmoid sinuses. Mastoid air cells: Visualized mastoid air cells are well aerated. Bones/joints: Unremarkable. No acute fracture. Soft tissues: Unremarkable. CT/CT head wo con* [id number] IMPRESSION: 1. No acute intracranial findings. 2. Mucosal thickening with air-fluid levels in the maxillary and sphenoid sinuses.
[2023-09-23 13:55] LABS: Troponin 5 2HR 15.56 ng/L (0-15); Troponin 5 2HR Delta -1.44 ABS# (0-10)
--- NOTE | 2023-09-23 14:57 | ECG_ITS ---
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 Measurements Intervals [place] Rate: 100 P: 63 OR: 158 QRS: -16 QRSD: 115 T: 41 QT: 369 QTc: 477 Interpretive Statements SINUS TACHYCARDIA POSSIBLE RIGHT VENTRICULAR CONDUCTION DELAY [RSR (QR) IN V1/V2] INFERIOR MYOCARDIAL INFARCTION , OF INDETERMINATE AGE [40+ ms Q WAVE AND/OR ST/T ABNORMALITY IN II/aVF] Compared to ECG 09/23/2023 11:00:09 Myocardial infarct finding now present Incomplete right bundle-branch block no longer present Electronically Signed On 09-23-2023 22:53:06 CDT by Salvador Yeh M.D. [email or web address]/store/[id number]
[2023-09-23] MEDS: cefTRIAXone 1,000 MG in sodium chloride 0.9% (plus) 50 ML 100 MG IV (15:44)
[2023-09-23] MEDS: enoxaparin 40 mg/0.4 mL Syringe SUBCUT (16:36)
[2023-09-23] MEDS: pantoprazole 40 mg SDV IVP (16:37)
[2023-09-23 17:00] LABS: Troponin 5 6HR 15.02 ng/L (0-15)
[2023-09-23 17:02] LABS: Troponin 5 6HR Delta -1.98 ng/L (0-12)
[2023-09-23] MEDS: amitriptyline 25 mg Tablet PO (18:04)
[2023-09-23] MEDS: mirtazapine 15 mg Tablet PO (18:04)
[2023-09-24] VITALS (9 sets, daily range): BP systolic 110–144; BP diastolic 62–79; PULSE 97–111; RESP 16–18; TEMP 36.6–36.9; O2SAT 90–94; BMI 27.0
[2023-09-24 02:48] LABS: Basophils # 0.1 10^3/uL (0.0-0.1); Basophils % 0.3 %; Hematocrit 37.4 % (37-53); Lymphocytes % 3.5 %; Mean Corpuscular HGB Conc 33.7 g/dL (30-55); Mean Corpuscular Volume 86.2 fl (82-101); Mean Platelet Volume 9.8 fL (7.4-10.4); Monocytes # 1.1 10^3/uL (0.2-0.9); Monocytes % 3.9 %; Neutrophils # 26.04 10^3/uL (1.8-7.7); Neutrophils % 89.9 %; Nucleated Red Blood Cells % 0 %; Platelet Count 446 10^3/cmm (157-399); Red Blood Count 4.34 10^6/uL (3.85-5.65); Red Cell Distribution Width 14.3 % (12.1-15.1); White Blood Count 28.95 10^3/uL (3.29-11.43)
[2023-09-24 03:15] LABS: Alanine Aminotransferase 18 U/L (0-41); Albumin Level 2.7 g/dL (3.5-5.2); Alkaline Phosphatase 73 U/L (40-130); Aspartate Amino Transferase 30 U/L (0-40); Blood Urea Nitrogen 19 mg/dL (8-23); Carbon Dioxide 22 mmol/L (22-29); Chloride 107 mmol/L (98-107); Creatinine Clr Calc Pharmacy 85.9345; Glucose 156 mg/dL (65-115); Magnesium 2.2 mg/dL (1.7-2.3); Osmolality Calculated 297 mOsm/kg (285-295); Sodium 141 mmol/L (136-145); Total Bilirubin 0.4 mg/dL (0.15-1.2); Total Protein 6.7 g/dL (6.6-8.7)
[2023-09-24] MEDS: methylPREDNISolone sod succ 40 mg/mL INJ IVP ×3 (07:02→23:04)
[2023-09-24] MEDS: amlodipine 10 mg Tablet PO (08:14)
[2023-09-24] MEDS: pantoprazole DR 40 mg Tablet PO (08:15)
[2023-09-24] MEDS: aspirin 81 mg EC Tablet PO (08:15)
[2023-09-24] MEDS: budesonide 0.5 mg/2 mL Neb INHALATION ×2 (08:22→20:24)
[2023-09-24] MEDS: ipratropium-albuterol 3 mL Neb INHALATION ×4 (08:22→20:24)
[2023-09-24] MEDS: cefTRIAXone 1,000 MG in sodium chloride 0.9% (plus) 50 ML 100 MG IV (13:10)
[2023-09-24] MEDS: azithromycin 500 MG in sodium chloride 0.9% 250 ML 250 MG IV (13:13)
--- NOTE | 2023-09-24 14:18 | P.PN_ITS ---
Subjective 2 Subjective: Patient was seen this morning, does report intermittent shortness of breath, does have a cough, no fevers, no chills, currently on room air, Vitals/I&O/Wt Last Vital Signs Temp 97.8 F 09/24/23 11:39 Pulse 108 H 09/24/23 12:11 Resp 18 09/24/23 12:11 BP 117/72 09/24/23 11:39 Pulse Ox 92 09/24/23 12:11 O2 Del Method Room Air 09/24/23 12:11 O2 Flow Rate 3 09/23/23 20:36 09/23/23 09/24/23 09/24/23 22:59 06:59 14:59 Intake Total 1020 / 1500 240 / 1740 290 / 290 Balance 1020 / 1500 240 / 1740 290 / 290 Weight last 48 hrs Weight 80.739 kg Weight 79.379 kg Weight 82.508 kg Physical Exam 2 Const: COMMON NORMALS: no acute distress ORIENTATION/CONSCIOUSNESS: Yes awake, Yes oriented to person and Yes oriented to place; not oriented to time Resp: COMMON NORMALS: normal respiratory effort, No retractions and No use of accessory muscles AUSCULTATION: wheezes Cardio: COMMON NORMALS: regular rate, regular rhythm, S1 normal heart sound present and S2 normal heart sound present RATE: regular rate RHYTHM: r egular rhythm HEART SOUNDS: S1 normal heart sound present and S2 normal heart sound present GI: COMMON NORMALS: Normal to inspection, nondistended, normoactive bowel sounds present and non-tender Extremity: COMMON NORMALS: no pedal edema Neuro: SENSORIUM/ORIENTATION: Yes oriented to person, Yes oriented to place and No oriented to time Data 09/24/23 02:37 09/24/23 02:37 Micro: Microbiology 09/22/23 13:47 Blood Culture - Preliminary Blood NEGATIVE TO DATE 09/22/23 13:44 Blood Culture - Preliminary Blood NEGATIVE TO DATE A&P Assessment and plan (1) Acute respiratory failure: (2) Pulmonary fibrosis: (3) Pneumonia: (4) Hypertensive urgency: (5) Abdominal pain: (6) RSV (respiratory syncytial virus pneumonia): (7) NSTEMI (non-ST elevated myocardial infarction): (8) Acute encephalopathy: Plan Acute respiratory distress ? Secondary to pneumonia, COPD exacerbation, pulmonary fibrosis exacerbation -Secondary to RSV pneumonia ? Clinically improved this morning does have sinus tachycardia, resting comfortably ? ABG pH 7.5, pO2 56.3 on room air ? CT angiogram of the chest IMPRESSION: 1. No evidence of pulmonary embolus. 2. Advanced chronic emphysematous changes with fibrotic appearing interstitial infiltrates in the LEFT greater than RIGHT lower lobes and RIGHT middle lobe. Recommend correlation for pneumonia. Consider pulmonary consultation for interstitial lung disease. 3. Noncalcified subpleural nodule RIGHT lower lobe measuring 5 mm. Recommend 12-month follow-up chest CT. 4. A few reactive paratracheal lymph nodes. 5. Small esophageal hiatal hernia. 6. No other acute findings. -Prior history of COPD, ? No documented history of pulmonary fibrosis ? Plan, ? Rocephin Azithromycin ? Sputum cultures ? Blood cultures, ? Solu-Medrol 125 followed by 40 mg IV every 8 hours ? DuoNeb, budesonide ? Monitor respiratory status closely ? Respiratory therapy eval NSTEMI -Likely secondary respiratory distress as above -Serial EKGs, serial troponins, telemetry monitoring -Continue aspirin, statin -Cardiac echo Acute encephalopathy, ?could be secondary to underlying hypoxia, pneumonia, will do CT of the head, within normal limits Hypertensive urgency, blood pressure is 176/47 when patient arrived, currently 176/70, ? Start Norvasc 10 mg p.o. daily Full code ? Lovenox for DVT prophylaxis Attestations 2 Medical Necessity Statement*: Patient requires hospitalization for acute respiratory distress secondary to pneumonia COPD pulmonary fibrosis RSV pneumonia Diagnoses Acute respiratory failure J96.00 Pulmonary fibrosis J84.10 Pneumonia J18.9 Hypertensive urgency I16.0 Abdominal pain R10.9 RSV (respiratory syncytial virus pneumonia) J12.1 NSTEMI (non-ST elevated myocardial infarction) I21.4 Acute encephalopathy G93.40
[2023-09-24] MEDS: mirtazapine 15 mg Tablet PO (16:52)
[2023-09-24] MEDS: enoxaparin 40 mg/0.4 mL Syringe SUBCUT (16:53)
[2023-09-24] MEDS: amitriptyline 25 mg Tablet PO (16:53)
[2023-09-25] VITALS: BP 103/62; PULSE 96; RESP 20; TEMP 36.6; O2SAT 91
[2023-09-25 02:57] LABS: Basophils % 0.2 %; Lymphocytes # 0.8 10^3/uL (0.8-4.8); Lymphocytes % 3.6 %; Mean Corpuscular HGB Conc 33.2 g/dL (30-55); Mean Corpuscular Hemoglobin 28.9 pg (27-33); Mean Corpuscular Volume 86.9 fl (82-101); Mean Platelet Volume 9.7 fL (7.4-10.4); Monocytes # 0.8 10^3/uL (0.2-0.9); Monocytes % 3.4 %; Neutrophils # 20.56 10^3/uL (1.8-7.7); Neutrophils % 91.3 %; Nucleated Red Blood Cells % 0 %; Platelet Count 459 10^3/cmm (157-399); Red Blood Count 4.26 10^6/uL (3.85-5.65); Red Cell Distribution Width 14.6 % (12.1-15.1); White Blood Count 22.51 10^3/uL (3.29-11.43)
[2023-09-25 03:09] LABS: INR 1.08 (0.8-1.2)
[2023-09-25 03:17] LABS: Alanine Aminotransferase 24 U/L (0-41); Albumin Level 2.8 g/dL (3.5-5.2); Alkaline Phosphatase 71 U/L (40-130); Anion Gap 14.6 (5-19); Aspartate Amino Transferase 33 U/L (0-40); Blood Urea Nitrogen 21 mg/dL (8-23); Calcium 9.1 mg/dL (8.5-10.5); Carbon Dioxide 23 mmol/L (22-29); Chloride 105 mmol/L (98-107); Creatinine Clr Calc Pharmacy 86.5768; Globulin 3.9 g/dL (1.3-4.6); Glucose 145 mg/dL (65-115); Magnesium 2.2 mg/dL (1.7-2.3); Osmolality Calculated 292 mOsm/kg (285-295); Phosphorus 3.7 mg/dL (2.5-4.5); Potassium 4.6 mmol/L (3.5-5.1); Sodium 138 mmol/L (136-145); Total Bilirubin 0.4 mg/dL (0.15-1.2); Total Protein 6.7 g/dL (6.6-8.7)
[2023-09-25 04:00] VITALS: BP 114/68; PULSE 95; RESP 18; TEMP 36.4; O2SAT 91
[2023-09-25] MEDS: methylPREDNISolone sod succ 40 mg/mL INJ IVP (06:21)
[2023-09-25 08:00] VITALS: BP 137/78; PULSE 107; RESP 20; TEMP 36.6; O2SAT 90
--- NOTE | 2023-09-25 08:38 | PM.DCS ---
Discharge Providers Date of Admission: 09/22/23 16:19 Date of Discharge: September 25, 2023 Attending Provider at Admission: George Blum MD Attending Provider at Discharge: George Blum MD Diagnoses at Discharge Discharge Diagnosis (1) Acute respiratory failure: Status: Acute (2) Pulmonary fibrosis: Status: Acute (3) Pneumonia: Status: Acute (4) Hypertensive urgency: Status: Acute (5) Abdominal pain: Status: Acute (6) RSV (respiratory syncytial virus pneumonia): Status: Acute (7) NSTEMI (non-ST elevated myocardial infarction): Status: Acute (8) Acute encephalopathy: Status: Acute Reason for Visit Reason for Visit: ABD PAIN Hospital Course Hospital Course Diogo Suarez is a 73 year old male with past medical history of smoking, history of COPD, no history of heart disease no history of stroke no history of diabetes, recently a resident at [facility] who presents [facility] due to shortness of breath, fatigue, malaise, abdominal pain. Currently patient is short of breath, tachypneic, tachycardic, nasal flaring, intercostal retractions, has diffuse wheezing, he is on room air, saturating in the high 90s, hypertensive blood pressures 170s over 100s, has received hydralazine, patient tells me that he is here in the hospital as he is felt increasingly short of breath, he also complains of abdominal pain, feeling nauseous, no diarrhea, no constipation, no bloody or black stools, Patient presents [facility] for acute respiratory distress secondary to pneumonia, RSV, COPD exacerbation, pulmonary fibrosis exacerbation, patient received broad-spectrum antibiotic therapy, steroid therapy, oxygen therapy clinically monitored. Overall patient clinically improved, discharged on prednisone burst, with Levaquin, with albuterol, Advair with close follow-up with primary care provider as outpatient For his pulmonary fibrosis, pulmonary nodules, follow-up with pulmonology in [place] Physical Exam Const: COMMON NORMALS: no acute distress and patient oriented x3 Resp: COMMON NORMALS: normal respiratory effort, No retractions, No use of accessory muscles and clear to auscultation bilaterally AUSCULTATION: clear to auscultation bilaterally Cardio: COMMON NORMALS: regular rate, regular rhythm, S1 normal heart sound present and S2 normal heart sound present RATE: regular rate RHYTHM: regular rhythm HEART SOUNDS: S1 normal heart sound present and S2 normal heart sound present GI: COMMON NORMALS: Normal to inspection, nondistended, normoactive bowel sounds present and non-tender Extremity: COMMON NORMALS: no pedal edema Neuro: COMMON NORMALS: patient oriented x3 Psych: COMMON NORMALS: mental status grossly normal Discharge Data Studies Completed and Pending Completed Studies During Hospitalization Category Date Time Status CT abdomen pelvis wo con [id number] Stat Cat Scan 09/22/23 15:[address] head wo con* [id number] Routine Cat Scan 09/23/23 13:54 Completed CTA chest [CT angio chest PE protcl [id number]] Stat Cat Scan 09/22/23 13:28 Completed XR chest 1V portable [id number] Stat Exams 09/22/23 12:37 Completed CV. echo complete* [id number] Routine Ultrasound 09/23/23 08:56 Completed Pending at discharge Category Date Time Status Blood Culture Stat Lab 09/22/23 13:47 Results Sputum Culture and Gram Stain Stat Lab 09/22/23 15:18 Uncollected Radiology Impressions Abdomen/Pelvis CT 09/22/23 15:28 IMPRESSION: 1. No acute findings obviously identified. 2. Additional details as above. Head CT 09/23/23 13:54 IMPRESSION: 1. No acute intracranial findings. 2. Mucosal thickening with air-fluid levels in the maxillary and sphenoid sinuses. Laboratory Results WBC 22.51 10^3/uL (3.29-11.43) H 09/25/23 02:45 RBC 4.26 10^6/uL (3.85-5.65) 09/25/23 02:45 Hgb 12.30 g/dL (11.27-16.99) 09/25/23 02:45 Hct 37.0 % (37-53) 09/25/23 02:45 MCV 86.9 fl (82-101) 09/25/23 02:45 MCH 28.9 pg (27-33) 09/25/23 02:45 MCHC 33.2 g/dL (30-55) 09/25/23 02:45 RDW 14.6 % (12.1-15.1) 09/25/23 02:45 Plt Count 459 10^3/cmm (157-399) H 09/25/23 02:45 MPV 9.7 fL (7.4-10.4) 09/25/23 02:45 Neut % (Auto) 91.3 % 09/25/23 02:45 Lymph % (Auto) 3.6 % 09/25/23 02:45 [place] % (Auto) 3.4 % 09/25/23 02:45 Eos % (Auto) 0.0 % 09/25/23 02:45 Baso % (Auto) 0.2 % 09/25/23 02:45 Neut # (Auto) 20.56 10^3/uL (1.8-7.7) H 09/25/23 02:45 Lymph # (Auto) 0.8 10^3/uL (0.8-4.8) 09/25/23 02:45 [place] # (Auto) 0.8 10^3/uL (0.2-0.9) 09/25/23 02:45 Eos # (Auto) 0.0 10^3/uL (0.0-0.8) 09/25/23 02:45 Baso # (Auto) 0.0 10^3/uL (0.0-0.1) 09/25/23 02:45 Nucleated RBC % (auto) 0 % 09/25/23 02:45 Nucleated RBCs # 0.0 /100WBC 09/25/23 02:45 ESR 30 mm/hr (0-10) H 09/22/23 12:49 PT 14.40 SECONDS (12.1-14.9) 09/25/23 02:45 INR 1.08 (0.8-1.2) 09/25/23 02:45 D-Dimer 3.81 ug/mLFEU (0-0.59) H 09/22/23 12:49 Specimen Type Arterial 09/22/23 13:06 Sample Site Radial, left 09/22/23 13:06 ABG pH 7.50 (7.35-7.45) H 09/22/23 13:06 ABG pCO2 28.8 mmHg (35-45) L 09/22/23 13:06 ABG pO2 56.3 mmHg (80.0-100.0) L 09/22/23 13:06 ABG PO2/FiO2 Ratio 0 09/22/23 13:06 ABG HCO3 22.7 mmol/L (22-26) 09/22/23 13:06 ABG Base Excess 0.5 mmol/L (-2.0-2.0) 09/22/23 13:06 Joaquin Test Pos 09/22/23 13:06 Hematocrit 39.3 % (42-52) L 09/22/23 13:06 O2 Delivery Device Room air 09/22/23 13:06 FiO2 21.0 % 09/22/23 13:06 Diesel Crane Operator ID Cak 09/22/23 13:06 Sodium 138 mmol/L (136-145) 09/25/23 02:45 Potassium 4.6 mmol/L (3.5-5.1) 09/25/23 02:45 Chloride 105 mmol/L (98-107) 09/25/23 02:45 Carbon Dioxide 23 mmol/L (22-29) 09/25/23 02:45 Anion Gap 14.6 (5-19) 09/25/23 02:45 BUN 21 mg/dL (8-23) 09/25/23 02:45 Creatinine 0.7 mg/dL (0.7-1.2) 09/25/23 02:45 GFR Calculation Not Reportable 09/25/23 02:45 Glucose 145 mg/dL (65-115) H 09/25/23 02:45 Estimat Average Glucose 123 09/22/23 12:49 Hemoglobin A1c 5.9 % (4.0-6.0) 09/22/23 12:49 Calculated Osmolality 292 mOsm/kg (285-295) 09/25/23 02:45 Lactic Acid 2.1 mmol/L (0.5-2.2) 09/22/23 12:49 Lactic Acid (Sepsis) 2.8 mmol/L (0.5-2.2) H 09/22/23 18:50 Calcium 9.1 mg/dL (8.5-10.5) 09/25/23 02:45 Phosphorus 3.7 mg/dL (2.5-4.5) 09/25/23 02:45 Magnesium 2.2 mg/dL (1.7-2.3) 09/25/23 02:45 Total Bilirubin 0.4 mg/dL (0.15-1.2) 09/25/23 02:45 AST 33 U/L (0-40) 09/25/23 02:45 ALT 24 U/L (0-41) 09/25/23 02:45 Alkaline Phosphatase 71 U/L (40-130) 09/25/23 02:45 Troponin T 5th Gen ng/L 19 ng/L (0-15) H 09/23/23 05:46 Troponin T Baseline 17 ng/L (0-15) H 09/23/23 10:18 Troponin T 120 Minute 15.56 ng/L (0-15) H 09/23/23 13:17 Delta Troponin T -1.44 ABS# (0-10) L 09/23/23 13:17 Troponin T Hi Sens 6Hr 15.02 ng/L (0-15) H 09/23/23 16:21 Troponin T Hi Sens 6Hr Delta -1.98 ng/L (0-12) L 09/23/23 16:21 C-Reactive Protein 190.0 mg/L (0.0-4.9) H 09/22/23 12:49 NT-Pro-B Natriuret Pep 664 pg/mL (0-125) H 09/23/23 05:46 Total Protein 6.7 g/dL (6.6-8.7) 09/25/23 02:45 Albumin 2.8 g/dL (3.5-5.2) L 09/25/23 02:45 Globulin 3.9 g/dL (1.3-4.6) 09/25/23 02:45 Triglycerides 71 mg/dL (0-150) 09/22/23 12:49 Cholesterol 93 mg/dL (0-200) 09/22/23 12:49 LDL Cholesterol, Calc 46 mg/dL (50-129) L 09/22/23 12:49 HDL Cholesterol 33 mg/dL (60-100) L 09/22/23 12:49 LDL/HDL Ratio 1.39 RATIO (0.00-3.22) 09/22/23 12:49 Cholesterol/HDL Ratio 2.82 mg/dL (1.0-5.00) 09/22/23 12:49 Lipase 35 U/L (13-60) 09/22/23 12:49 Procalcitonin 0.39 ng/mL (0-0.5) 09/22/23 12:49 TSH 1.04 uIU/mL (0.27-4.20) 09/22/23 12:49 TSH 1.08 uIU/mL (0.27-4.20) 09/22/23 12:49 Adenovirus (PCR) Not detected (NOT DETECT) 09/22/23 17:47 C. pneumoniae DNA (PCR) Not detected (NOT DETECT) 09/22/23 17:47 Coronavirus 229E (PCR) Not detected (NOT DETECT) 09/22/23 17:47 Human Metapneumovir PCR Not detected (NOT DETECT) 09/22/23 17:47 Influenza A (H1) PCR Not detected (NOT DETECT) 09/22/23 17:47 Influ A (H1/09) PCR Not detected (NOT DETECT) 09/22/23 17:47 Influenza A (H3) PCR Not detected (NOT DETECT) 09/22/23 17:47 Influenza Type A (PCR) Not detected (NOT DETECT) 09/22/23 17:47 Influenza Type B (PCR) Not detected (NOT DETECT) 09/22/23 17:47 M. pneumoniae (PCR) Not detected (NOT DETECT) 09/22/23 17:47 Parainfluenza 1 (PCR) Not detected (NOT DETECT) 09/22/23 17:47 Parainfluenza 2 (PCR) Not detected (NOT DETECT) 09/22/23 17:47 Parainfluenza 3 (PCR) Not detected (NOT DETECT) 09/22/23 17:47 Parainfluenza 4 (PCR) Not detected (NOT DETECT) 09/22/23 17:47 RSV Type A (PCR) Not detected (NOT DETECT) 09/22/23 17:47 RSV Type B (PCR) Detected (NOT DETECT) A 09/22/23 17:47 Entero/Rhino (PCR) Not detected (NOT DETECT) 09/22/23 17:47 SARS-CoV-2 (PCR) Not detected (NOT DETECT) 09/22/23 17:47 Vitals Last Vital Signs Temp 97.8 F 09/25/23 08:00 Pulse 107 H 09/25/23 08:00 Resp 20 H 09/25/23 08:00 BP 137/78 09/25/23 08:00 Pulse Ox 90 09/25/23 08:00 O2 Del Method Room Air 09/25/23 08:00 O2 Flow Rate 3 09/23/23 20:36 Discharge Plan Discharge Patient Disposition: Home Condition: Stable Prescriptions: New amlodipine 10 mg Tablet 10 mg PO DAILY 30 Days Qty: 30 0RF fluticasone propion-salmeterol [Advair Diskus] 100-50 mcg/dose blister with device 1 inh inhalation DAILY Qty: 60 0RF aspirin 81 mg Tablet,Delayed Release (Dr/Ec) 81 mg PO DAILY 30 Days Qty: 30 0RF albuterol sulfate 90 mcg/actuation HFA aerosol inhaler 1 inh inhalation Q6H PRN (Reason: shortness of breath or wheezing) Qty: 8.5 0RF levofloxacin 750 mg tablet 750 mg PO DAILY 5 Days Qty: 5 0RF prednisone 20 mg tablet 20 mg PO BID 5 Days Qty: 10 0RF Continued acetaminophen 325 mg Tablet 325 mg PO QID PRN (Reason: Pain) Provera 5 mg Tablet 5 mg PO DAILY melatonin 3 mg Tablet 3 mg PO BEDTIME famotidine 20 mg tablet 20 mg PO DAILY amitriptyline 25 mg tablet 25 mg PO QPM Milk of Magnesia 400 mg/5 mL Suspension 15 ml PO DAILY PRN (Reason: Constipation) Dulcolax (bisacodyl) 10 mg Suppository 10 mg IA DAILY PRN (Reason: Constipation) Dulcolax (bisacodyl) 5 mg Tablet,Delayed Release (Dr/Ec) 5 mg PO DAILY PRN (Reason: Constipation) Remeron 15 mg Tablet 15 mg PO QPM Mylanta 200-200-20 mg/5 mL Suspension 15 ml PO QID PRN (Reason: Constipation) Rx Instructions: administer between meals and at bedtime Miralax 17 gram/dose Powder 4 g PO DAILY hydroxyzine pamoate 25 mg capsule 25 mg PO BID Vitamin D3 25 mcg (1,000 unit) Capsule 25 mcg PO DAILY magnesium 200 mg Tablet 400 mg PO DAILY CoQ-10 100 mg Capsule 100 mg PO DAILY Fish Oil 300-1,000 mg Capsule 1 cap PO DAILY Mucinex 600 mg Tablet Extended Release 12hr 600 mg PO Q12H PRN (Reason: Congestion) Discharge Orders: Discharge Order (Routine); Ordered 09/25/23 Ordered By: George Blum Referrals: Della De La Garza M.D [Referring] - 1 month Discharge Diet: Regular Discharge Activity: Resume usual activity Patient Instructions: Opioid Safety Activity Restrictions/Additional Instructions: - For your emphysema and pulmonary fibrosis please follow-up with pulmonary in [place], ? Please hydrate well and drink plenty electrolyte balanced fluids Discharge Attestations Time Spent in Discharge Care*: greater than 30 min Quality Metrics Clinical Quality Measures [ No reported AMI, CVA or VTE this stay] Coding Level of Care Code 00006 Total time (in minutes) for Discharge: 45 Diagnoses Acute respiratory failure J96.00 Pulmonary fibrosis J84.10 Pneumonia J18.9 Hypertensive urgency I16.0 Abdominal pain R10.9 RSV (respiratory syncytial virus pneumonia) J12.1 NSTEMI (non-ST elevated myocardial infarction) I21.4 Acute encephalopathy G93.40
[2023-09-25] MEDS: amlodipine 10 mg Tablet PO (09:30)
[2023-09-25] MEDS: aspirin 81 mg EC Tablet PO (09:30)
[2023-09-25] MEDS: pantoprazole DR 40 mg Tablet PO (09:30)
[2023-09-25 11:47] VITALS: BP 137/78; PULSE 110; RESP 20; TEMP 36.3; O2SAT 92
--- NOTE | 2023-09-25 12:21 | PC.NURSE ---
Called report to Kristel Mcgarry RN at [facility] in [facility] at [phone]
[2023-09-25 12:22] VITALS: BP 137/78; PULSE 110; RESP 20; TEMP 36.3; O2SAT 92
--- NOTE | 2023-09-25 12:25 | PC.NURSE ---
Transport here this am before report was called due to transports system being down. Report was called to facility right after patient left the floor.
== END 2023-09-25 12:00 | disposition skilled nursing facility (03) | DRG 193 ==
LOC: ER 13:04 → MEDSURG 18:11
PROVIDERS: Internal Medicine; Admitting Provider Family Medicine; Emergency Provider Emergency Medicine; Visit Provider Family Medicine
DX: J12.1 Respiratory syncytial virus pneumonia (principal); I21.4 Non-ST elevation (NSTEMI) myocardial infarction; J96.00 Acute respiratory failure, unspecified whether with hypoxia or hypercapnia; J44.0 Chronic obstructive pulmonary disease with (acute) lower respiratory infection; J44.1 Chronic obstructive pulmonary disease with (acute) exacerbation; G93.40 Encephalopathy, unspecified; K21.9 Gastro-esophageal reflux disease without esophagitis; J84.10 Pulmonary fibrosis, unspecified; I16.0 Hypertensive urgency; R00.0 Tachycardia, unspecified; Z11.52 Encounter for screening for COVID-19; Z87.891 Personal history of nicotine dependence
CPT/HCPCS: 36415; 36600; 70450; 71045; 71275; 74176; 80053; 80061; 82803; 83036; 83605; 83690; 83735; 83880; 84100; 84145; 84443; 84484; 85025; 85378; 85610; 85651; 86140; 87040; 87486; 87581; 87633; 93005; 93306; 94640; 96365; 96367; 96372; 97161; 97165; 97530; 99285; C9113; J0360; J0456; J0696; J1650; J2920; J2930; J7030; J7050; J7626; Q9967

== ENCOUNTER 2024-03-14 16:46 | Emergency (ER) | payer MEDICARE, MEDICAID, SELFPAY ==
[2024-03-14 16:48] VITALS: BP 139/78; PULSE 102; RESP 16; TEMP 36.9; O2SAT 96; BMI 27.7
--- NOTE | 2024-03-14 16:49 | XRR_ITS ---
PROCEDURE INFORMATION: Exam: XR Chest Exam date and time: 03/14/2024 4:53 PM Age: 73 years old Clinical indication: Other: AMS; Additional info: Weakness TECHNIQUE: Imaging protocol: Radiologic exam of the chest. Views: 1 view. COMPARISON: CT angio chest PE protcl [id number] 09/22/2023 2:11 PM FINDINGS: Lungs: Mild interstitial opacities are present in the medial right lung base and left lower lobe/lingula. Pleural spaces: No pleural effusion. No pneumothorax. Heart/Mediastinum: Stable heart size. Bones/joints: Stable bones. XR/XR chest 1V portable [id number] IMPRESSION: Mild interstitial opacities are present in the medial right lung base and left lower lobe/lingula. Correlate for possible infection versus chronic interstitial lung disease.
--- NOTE | 2024-03-14 16:50 | CTR_ITS ---
PROCEDURE INFORMATION: Exam: CT Head Without Contrast Exam date and time: 03/14/2024 4:56 PM Age: 73 years old Clinical indication: Injury or trauma; Fall; Other: Pain; Additional info: Falls TECHNIQUE: Imaging protocol: Computed tomography of the head without contrast. Radiation optimization: All CT scans at this facility use at least one of these dose optimization techniques: automated exposure control; mA and/or kV adjustment per patient size (includes targeted exams where dose is matched to clinical indication); or iterative reconstruction. COMPARISON: CT head wo con* [id number] 09/23/2023 2:25 PM RADIATION DOSE METRICS: Total DLP (mGy-cm): 1108 FINDINGS: Brain: Chronic encephalomalacia in the left subinsular region and chronic lacunar type infarct right basal ganglia is unchanged. No acute infarct. No hemorrhage. Stable involutional changes of the brain. No midline shift. Cerebral ventricles: Stable ventricular size. No ventriculomegaly. Paranasal sinuses: Trace mucosal thickening left maxillary sinus without air-fluid level. Mastoid air cells: No significant inflammation. Bones: No acute fracture. Soft tissues: Unremarkable. CT/CT head wo con* [id number] IMPRESSION: No acute intracranial abnormality.
--- NOTE | 2024-03-14 17:24 | ED_ITS ---
Documented by User: Isabella Maradiaga MD 03/14/24 17:26 HPI - Fall 2 General: Chief Complaint: Fall Stated Complaint: FALL Time Seen by Provider: 03/14/24 16:47 History of Present Illness: 73-year-old male with history of dementi a who presents from shelter by ambulance with concern for falls and possibly some confusion. On his arrival here he is fairly alert and does not seem confused at all. He answers questions appropriately. He complains of no pain. He says he does not know why he is here. No fevers. No cough. No chest pain. No abdominal pain. No nausea or vomiting Related Data Home Medications Medication Instructions Recorded Confirmed acetaminophen 325 mg tablet 325 mg PO QID PRN Pain 09/22/23 09/22/23 aluminum-mag hydroxide-simethicone 15 ml PO QID PRN Constipation 09/22/23 09/22/23 200 mg-200 mg-20 mg/5 mL oral susp amitriptyline 25 mg tablet 25 mg PO QPM 09/22/23 09/22/23 bisacodyl 10 mg rectal suppository 10 mg MT DAILY PRN Constipation 09/22/23 09/22/23 (Dulcolax (bisacodyl)) bisacodyl 5 mg tablet,delayed 5 mg PO DAILY PRN Constipation 09/22/23 09/22/23 release (Dulcolax (bisacodyl)) cholecalciferol (vitamin D3) 25 25 mcg PO DAILY 09/22/23 09/22/23 mcg (1,000 unit) capsule (Vitamin D3) coenzyme Q10 100 mg capsule 100 mg PO DAILY 09/22/23 09/22/23 (CoQ-10) famotidine 20 mg tablet 20 mg PO DAILY 09/22/23 09/22/23 guaifenesin 600 mg tablet, 600 mg PO Q12H PRN Congestion 09/22/23 09/22/23 extended release 12 hr (Mucinex) hydroxyzine pamoate 25 mg capsule 25 mg PO BID 09/22/23 09/22/23 magnesium 200 mg tablet 400 mg PO DAILY 09/22/23 09/22/23 magnesium hydroxide 400 mg/5 mL 15 ml PO DAILY PRN Constipation 09/22/23 09/22/23 oral suspension (Milk of Magnesia) medroxyprogesterone 5 mg tablet 5 mg PO DAILY 09/22/23 09/22/23 (Provera) melatonin 3 mg tablet 3 mg PO BEDTIME 09/22/23 09/22/23 mirtazapine 15 mg tablet (Remeron) 15 mg PO QPM 09/22/23 09/22/23 omega 8-jtc-ids-fish oil 300 1 cap PO DAILY 09/22/23 09/22/23 mg-1,000 mg capsule (Fish Oil) polyethylene glycol 3350 17 4 g PO DAILY 09/22/23 09/22/23 gram/dose oral powder (Miralax) Previous Rx's Medication Instructions Recorded albuterol sulfate 90 mcg/actuation 1 inh inhalation Q6H PRN shortness 09/25/23 aerosol inhaler of breath or wheezing #8.5 grams fluticasone 100 mcg-salmeterol 50 1 inh inhalation DAILY #60 ea 09/25/23 mcg/dose blistr powdr for inhalation (Advair Diskus) Allergies Allergy/AdvReac Type Severity Reaction Status Date / Time No Known Allergies Allergy Verified 09/22/23 13:47 Review of Systems 2 Narrative: Constitutional symptoms: Negative except as documented in HPI. Skin symptoms: Negative except as documented in HPI. Eye symptoms: Negative except as documented in HPI. ENMT symptoms: Negative except as documented in HPI. Respiratory symptoms: Negative except as documented in HPI. Cardiovascular symptoms: Negative except as documented in HPI. Gastrointestinal symptoms: Negative except as documented in HPI. Genitourinary symptoms: Negative except as documented in HPI. Musculoskeletal symptoms: Negative except as documented in HPI. Neurologic symptoms: Negative except as documented in HPI. Psychiatric symptoms: Negative except as documented in HPI. Endocrine symptoms: Negative except as documented in HPI. PFSH ED 2 PFSH: Medical History (Updated 03/14/24 @ 20:06 by Lorenzo Field DO) History of COPD History of gastroesophageal reflux (GERD) Surgical History (Updated 09/22/23 @ 15:26 by George Blum MD) No pertinent past surgical history Family History (Updated 09/22/23 @ 15:26 by George Blum MD) Father Accident Social History (Updated 09/22/23 @ 15:26 by George Blum MD) Smoking and tobacco/nicotine status: former use of tobacco/nicotine Alcohol intake: never Substance/Drug Use: never Physical Exam 2 Narrative: EXAM NARRATIVE: General: Alert, no acute distress. Skin: Warm, dry. Head: Normocephalic, atraumatic. Neck: Supple, trachea midline. Eye: Extraocular movements are intact. Ears, nose, mouth and throat: mucosa moist. Cardiovascular: Regular, Normal peripheral perfusion. Respiratory: Lungs are clear to auscultation, respirations are non-labored, breath sounds are equal, Symmetrical chest wall expansion. Gastrointestinal: Soft, Nontender, Non distended Musculoskeletal: Normal ROM, no deformity. Neurological: Alert and oriented, No focal neurological deficit observed. Psychiatric: Cooperative, appropriate mood & affect. Course 2 Vital Signs: Vital signs: Vital Signs Temperature 98.4 F 03/14/24 16:48 Pulse Rate 89 03/14/24 20:28 Respiratory Rate 18 03/14/24 19:15 Blood Pressure 110/86 03/14/24 20:28 Pulse Oximetry 98 03/14/24 20:28 Oxygen Delivery Me thod Room Air 03/14/24 19:15 MDM - Fall Medical Decision Making Medical decision making: Differential diagnosis including but not limited to and based on the above HPI, review of systems and physical exam: In this patient with altered mental status: Stroke. Hypoglycemia. Metabolic encephalopathy. Infections such as pneumonia, urinary tract infection, Covid-19, Influenza. Electrolyte abnormalities such as hypernatremia. Renal failure / uremia. Hepatic encephalopathy. Hypoxemia. Hypercapnic respiratory failure. Psychosis. Drug or alcohol intoxication. Medication overdose. Orders placed to evaluate differential diagnosis based on the above differential, HPI and physical exam CT head: No acute intracranial process. no intracranial hemorrhage, no evidence of infarct. no evidence of acute fracture.This was reviewed and interpreted by myself the ER physician. Chest x-ray: No acute process. No infiltrate. No pneumothorax. This was reviewed and interpreted by myself the ER physician. Patient care transitioned to Dr. Field at shift change. Lab work still pending. Lab Data 03/14/24 17:22 03/14/24 17:22 Radiology Impressions Chest X-Ray 03/14/24 16:49 IMPRESSION: Mild interstitial opacities are present in the medial right lung base and left lower lobe/lingula. Correlate for possible infection versus chronic interstitial lung disease. Head CT 03/14/24 16:50 IMPRESSION: No acute intracranial abnormality. Laboratory Results WBC 10.45 10^3/uL (3.29-11.43) 03/14/24 17:22 RBC 3.08 10^6/uL (3.85-5.65) L 03/14/24 17:22 Hgb 8.20 g/dL (11.27-16.99) L 03/14/24 17:22 Hct 25.7 % (37-53) L 03/14/24 17:22 MCV 83.4 fl (82-101) 03/14/24 17:22 MCH 26.6 pg (27-33) L 03/14/24 17:22 MCHC 31.9 g/dL (30-55) 03/14/24 17:22 RDW 14.5 % (12.1-15.1) 03/14/24 17:22 Plt Count 497 10^3/cmm (157-399) H 03/14/24 17:22 MPV 8.7 fL (7.4-10.4) 03/14/24 17:22 Neut % (Auto) 61.6 % 03/14/24 17:22 Lymph % (Auto) 18.7 % 03/14/24 17:22 Davis % (Auto) 11.7 % 03/14/24 17:22 Eos % (Auto) 6.9 % 03/14/24 17:22 Baso % (Auto) 0.8 % 03/14/24 17:22 Neut # (Auto) 6.45 10^3/uL (1.8-7.7) 03/14/24 17:22 Lymph # (Auto) 2.0 10^3/uL (0.8-4.8) 03/14/24 17:22 Davis # (Auto) 1.2 10^3/uL (0.2-0.9) H 03/14/24 17:22 Eos # (Auto) 0.7 10^3/uL (0.0-0.8) 03/14/24 17:22 Baso # (Auto) 0.1 10^3/uL (0.0-0.1) 03/14/24 17:22 Nucleated RBC % (auto) 0 % 03/14/24 17:22 Nucleated RBCs # 0.0 /100WBC 03/14/24 17:22 Sodium 142 mmol/L (136-145) 03/14/24 17:22 Potassium 4.5 mmol/L (3.5-5.1) 03/14/24 17:22 Chloride 104 mmol/L (98-107) 03/14/24 17:22 Carbon Dioxide 24 mmol/L (22-29) 03/14/24 17:22 Anion Gap 18.5 (5-19) 03/14/24 17:22 BUN 17 mg/dL (8-23) 03/14/24 17:22 Creatinine 0.9 mg/dL (0.7-1.2) 03/14/24 17:22 GFR Calculation Not Reportable 03/14/24 17:22 Glucose 115 mg/dL (65-115) 03/14/24 17:22 Calculated Osmolality 296 mOsm/kg (285-295) H 03/14/24 17:22 Lactic Acid 1.1 mmol/L (0.5-2.2) 03/14/24 17:22 Calcium 8.9 mg/dL (8.5-10.5) 03/14/24 17:22 Total Bilirubin 0.3 mg/dL (0.15-1.2) 03/14/24 17:22 AST 26 U/L (0-40) 03/14/24 17:22 ALT 20 U/L (0-41) 03/14/24 17:22 Alkaline Phosphatase 81 U/L (40-130) 03/14/24 17:22 Ammonia 18 umol/L (16-60) 03/14/24 17:22 NT-Pro-B Natriuret Pep 203 pg/mL (0-125) H 03/14/24 17:22 Total Protein 6.7 g/dL (6.6-8.7) 03/14/24 17:22 Albumin 3.9 g/dL (3.5-5.2) 03/14/24 17:22 Globulin 2.8 g/dL (1.3-4.6) 03/14/24 17:22 Discharge Plan Discharge Patient Disposition: Home Clinical Impression: Dementia Qualifiers: Dementia type: unspecified type Dementia severity: moderate Dementia behavioral or psychological symptom: unspecified whether behavioral, psychotic, or mood disturbance or anxiety Qualified Code(s): F03.B0 - Unspecified dementia, moderate, without behavioral disturbance, psychotic disturbance, mood disturbance, and anxiety Condition: Stable Prescriptions: No Action acetaminophen 325 mg Tablet 325 mg PO QID PRN (Reason: Pain) Provera 5 mg Tablet 5 mg PO DAILY melatonin 3 mg Tablet 3 mg PO BEDTIME famotidine 20 mg tablet 20 mg PO DAILY amitriptyline 25 mg tablet 25 mg PO QPM Milk of Magnesia 400 mg/5 mL Suspension 15 ml PO DAILY PRN (Reason: Constipation) Dulcolax (bisacodyl) 10 mg Suppository 10 mg MT DAILY PRN (Reason: Constipation) Dulcolax (bisacodyl) 5 mg Tablet,Delayed Release (Dr/Ec) 5 mg PO DAILY PRN (Reason: Constipation) Remeron 15 mg Tablet 15 mg PO QPM alum-mag hydroxide-simeth 200-200-20 mg/5 mL Suspension 15 ml PO QID PRN (Reason: Constipation) Rx Instructions: administer between meals and at bedtime Miralax 17 gram/dose Powder 4 g PO DAILY hydroxyzine pamoate 25 mg capsule 25 mg PO BID Vitamin D3 25 mcg (1,000 unit) Capsule 25 mcg PO DAILY magnesium 200 mg Tablet 400 mg PO DAILY CoQ-10 100 mg Capsule 100 mg PO DAILY Fish Oil 300-1,000 mg Capsule 1 cap PO DAILY Mucinex 600 mg Tablet Extended Release 12hr 600 mg PO Q12H PRN (Reason: Congestion) albuterol sulfate 90 mcg/actuation HFA aerosol inhaler 1 inh inhalation Q6H PRN (Reason: shortness of breath or wheezing) Qty: 8.5 0RF Advair Diskus 100-50 mcg/dose blister with device 1 inh inhalation DAILY Qty: 60 0RF Discharge Orders: Discharge ED (Routine); Ordered 03/14/24 Ordered By: Lorenzo Field Patient Instructions: Dementia (ED) Activity Restrictions/Additional Instructions: Thank you for choosing [facility] for your healthcare needs today. Please realize that you were seen in the emergency department and that we are providing you with an emergency medical screening exam and this may not be a complete and all exclusive of all testing and/or medical workup we may need to determine your element or severity of your illness. It is very important that you follow-up as instructed with your primary care provider or specialist for the additional evaluation and to discuss your medical treatment plan. You may return to the emergency department should you have concerns or if your condition changes or worsens in any way. Coding Level of Care Code ED Manager [facility] Documented by User: Lorenzo Field DO 03/15/24 01:15 HPI - Fall 2 General: Chief Complaint: Fall Stated Complaint: FALL Time Seen by Provider: 03/14/24 16:47 Related Data Home Medications Medication Instructions Recorded Confirmed acetaminophen 325 mg tablet 325 mg PO QID PRN Pain 09/22/23 09/22/23 aluminum-mag hydroxide-simethicone 15 ml PO QID PRN Constipation 09/22/23 09/22/23 200 mg-200 mg-20 mg/5 mL oral susp amitriptyline 25 mg tablet 25 mg PO QPM 09/22/23 09/22/23 bisacodyl 10 mg rectal suppository 10 mg MT DAILY PRN Constipation 09/22/23 09/22/23 (Dulcolax (bisacodyl)) bisacodyl 5 mg tablet,delayed 5 mg PO DAILY PRN Constipation 09/22/23 09/22/23 release (Dulcolax (bisacodyl)) cholecalciferol (vitamin D3) 25 25 mcg PO DAILY 09/22/23 09/22/23 mcg (1,000 unit) capsule (Vitamin D3) coenzyme Q10 100 mg capsule 100 mg PO DAILY 09/22/23 09/22/23 (CoQ-10) famotidine 20 mg tablet 20 mg PO DAILY 09/22/23 09/22/23 guaifenesin 600 mg tablet, 600 mg PO Q12H PRN Congestion 09/22/23 09/22/23 extended release 12 hr (Mucinex) hydroxyzine pamoate 25 mg capsule 25 mg PO BID 09/22/23 09/22/23 magnesium 200 mg tablet 400 mg PO DAILY 09/22/23 09/22/23 magnesium hydroxide 400 mg/5 mL 15 ml PO DAILY PRN Constipation 09/22/23 09/22/23 oral suspension (Milk of Magnesia) medroxyprogesterone 5 mg tablet 5 mg PO DAILY 09/22/23 09/22/23 (Provera) melatonin 3 mg tablet 3 mg PO BEDTIME 09/22/23 09/22/23 mirtazapine 15 mg tablet (Remeron) 15 mg PO QPM 09/22/23 09/22/23 omega 4-lnv-gbh-fish oil 300 1 cap PO DAILY 09/22/23 09/22/23 mg-1,000 mg capsule (Fish Oil) polyethylene glycol 3350 17 4 g PO DAILY 09/22/23 09/22/23 gram/dose oral powder (Miralax) Previous Rx's Medication Instructions Recorded albuterol sulfate 90 mcg/actuation 1 inh inhalation Q6H PRN shortness 09/25/23 aerosol inhaler of breath or wheezing #8.5 grams fluticasone 100 mcg-salmeterol 50 1 inh inhalation DAILY #60 ea 09/25/23 mcg/dose blistr powdr for inhalation (Advair Diskus) Allergies Allergy/AdvReac Type Severity Reaction Status Date / Time No Known Allergies Allergy Verified 09/22/23 13:47 PFSH ED 2 PFSH: Medical History (Updated 03/14/24 @ 20:06 by Lorenzo Field DO) History of COPD History of gastroesophageal reflux (GERD) Surgical History (Updated 09/22/23 @ 15:26 by George Blum MD) No pertinent past surgical history Family History (Updated 09/22/23 @ 15:26 by George Blum MD) Father Accident Social History (Updated 09/22/23 @ 15:26 by George Blum MD) Smoking and tobacco/nicotine status: former use of tobacco/nicotine Alcohol intake: never Substance/Drug Use: never Course 2 Vital Signs: Vital signs: Vital Signs Temperature 98.4 F 03/14/24 16:48 Pulse Rate 89 03/14/24 20:28 Respiratory Rate 18 03/14/24 19:15 Blood Pressure 110/86 03/14/24 20:28 Pulse Oximetry 98 03/14/24 20:28 Oxygen Delivery Me thod Room Air 03/14/24 19:15 MDM - Fall Medical Decision Making Medical decision making: Differential diagnosis including but not limited to and based on the above HPI, review of systems and physical exam: In this patient with altered mental status: Stroke. Hypoglycemia. Metabolic encephalopathy. Infections such as pneumonia, urinary tract infection, Covid-19, Influenza. Electrolyte abnormalities such as hypernatremia. Renal failure / uremia. Hepatic encephalopathy. Hypoxemia. Hypercapnic respiratory failure. Psychosis. Drug or alcohol intoxication. Medication overdose. Orders placed to evaluate differential diagnosis based on the above differential, HPI and physical exam CT head: No acute intracranial process. no intracranial hemorrhage, no evidence of infarct. no evidence of acute fracture.This was reviewed and interpreted by myself the ER physician. Chest x-ray: No acute process. No infiltrate. No pneumothorax. This was reviewed and interpreted by myself the ER physician. Patient care transitioned to Dr. Field at shift change. Lab work still pending. Patient care transferred to myself at shift change, lab work all reviewed, discussed with the patient has dementia, patient being transferred in discharged back to shelter. Lab Data 03/14/24 17:22 03/14/24 17:22 Radiology Impressions Chest X-Ray 03/14/24 16:49 IMPRESSION: Mild interstitial opacities are present in the medial right lung base and left lower lobe/lingula. Correlate for possible infection versus chronic interstitial lung disease. Head CT 03/14/24 16:50 IMPRESSION: No acute intracranial abnormality. Laboratory Results WBC 10.45 10^3/uL (3.29-11.43) 03/14/24 17:22 RBC 3.08 10^6/uL (3.85-5.65) L 03/14/24 17:22 Hgb 8.20 g/dL (11.27-16.99) L 03/14/24 17:22 Hct 25.7 % (37-53) L 03/14/24 17:22 MCV 83.4 fl (82-101) 03/14/24 17:22 MCH 26.6 pg (27-33) L 03/14/24 17:22 MCHC 31.9 g/dL (30-55) 03/14/24 17:22 RDW 14.5 % (12.1-15.1) 03/14/24 17:22 Plt Count 497 10^3/cmm (157-399) H 03/14/24 17:22 MPV 8.7 fL (7.4-10.4) 03/14/24 17:22 Neut % (Auto) 61.6 % 03/14/24 17:22 Lymph % (Auto) 18.7 % 03/14/24 17:22 Davis % (Auto) 11.7 % 03/14/24 17:22 Eos % (Auto) 6.9 % 03/14/24 17:22 Baso % (Auto) 0.8 % 03/14/24 17:22 Neut # (Auto) 6.45 10^3/uL (1.8-7.7) 03/14/24 17:22 Lymph # (Auto) 2.0 10^3/uL (0.8-4.8) 03/14/24 17:22 Davis # (Auto) 1.2 10^3/uL (0.2-0.9) H 03/14/24 17:22 Eos # (Auto) 0.7 10^3/uL (0.0-0.8) 03/14/24 17:22 Baso # (Auto) 0.1 10^3/uL (0.0-0.1) 03/14/24 17:22 Nucleated RBC % (auto) 0 % 03/14/24 17:22 Nucleated RBCs # 0.0 /100WBC 03/14/24 17:22 Sodium 142 mmol/L (136-145) 03/14/24 17:22 Potassium 4.5 mmol/L (3.5-5.1) 03/14/24 17:22 Chloride 104 mmol/L (98-107) 03/14/24 17:22 Carbon Dioxide 24 mmol/L (22-29) 03/14/24 17:22 Anion Gap 18.5 (5-19) 03/14/24 17:22 BUN 17 mg/dL (8-23) 03/14/24 17:22 Creatinine 0.9 mg/dL (0.7-1.2) 03/14/24 17:22 GFR Calculation Not Reportable 03/14/24 17:22 Glucose 115 mg/dL (65-115) 03/14/24 17:22 Calculated Osmolality 296 mOsm/kg (285-295) H 03/14/24 17:22 Lactic Acid 1.1 mmol/L (0.5-2.2) 03/14/24 17:22 Calcium 8.9 mg/dL (8.5-10.5) 03/14/24 17:22 Total Bilirubin 0.3 mg/dL (0.15-1.2) 03/14/24 17:22 AST 26 U/L (0-40) 03/14/24 17:22 ALT 20 U/L (0-41) 03/14/24 17:22 Alkaline Phosphatase 81 U/L (40-130) 03/14/24 17:22 Ammonia 18 umol/L (16-60) 03/14/24 17:22 NT-Pro-B Natriuret Pep 203 pg/mL (0-125) H 03/14/24 17:22 Total Protein 6.7 g/dL (6.6-8.7) 03/14/24 17:22 Albumin 3.9 g/dL (3.5-5.2) 03/14/24 17:22 Globulin 2.8 g/dL (1.3-4.6) 03/14/24 17:22 All radiology interpretation(s) finalized by discharge Discharge Plan Discharge Patient Disposition: Home Clinical Impression: Dementia Qualifiers: Dementia type: unspecified type Dementia severity: moderate Dementia behavioral or psychological symptom: unspecified whether behavioral, psychotic, or mood disturbance or anxiety Qualified Code(s): F03.B0 - Unspecified dementia, moderate, without behavioral disturbance, psychotic disturbance, mood disturbance, and anxiety Condition: Stable Prescriptions: No Action acetaminophen 325 mg Tablet 325 mg PO QID PRN (Reason: Pain) Provera 5 mg Tablet 5 mg PO DAILY melatonin 3 mg Tablet 3 mg PO BEDTIME famotidine 20 mg tablet 20 mg PO DAILY amitriptyline 25 mg tablet 25 mg PO QPM Milk of Magnesia 400 mg/5 mL Suspension 15 ml PO DAILY PRN (Reason: Constipation) Dulcolax (bisacodyl) 10 mg Suppository 10 mg MT DAILY PRN (Reason: Constipation) Dulcolax (bisacodyl) 5 mg Tablet,Delayed Release (Dr/Ec) 5 mg PO DAILY PRN (Reason: Constipation) Remeron 15 mg Tablet 15 mg PO QPM alum-mag hydroxide-simeth 200-200-20 mg/5 mL Suspension 15 ml PO QID PRN (Reason: Constipation) Rx Instructions: administer between meals and at bedtime Miralax 17 gram/dose Powder 4 g PO DAILY hydroxyzine pamoate 25 mg capsule 25 mg PO BID Vitamin D3 25 mcg (1,000 unit) Capsule 25 mcg PO DAILY magnesium 200 mg Tablet 400 mg PO DAILY CoQ-10 100 mg Capsule 100 mg PO DAILY Fish Oil 300-1,000 mg Capsule 1 cap PO DAILY Mucinex 600 mg Tablet Extended Release 12hr 600 mg PO Q12H PRN (Reason: Congestion) albuterol sulfate 90 mcg/actuation HFA aerosol inhaler 1 inh inhalation Q6H PRN (Reason: shortness of breath or wheezing) Qty: 8.5 0RF Advair Diskus 100-50 mcg/dose blister with device 1 inh inhalation DAILY Qty: 60 0RF Discharge Orders: Discharge ED (Routine); Ordered 03/14/24 Ordered By: Lorenzo Field Patient Instructions: Dementia (ED) Activity Restrictions/Additional Instructions: Thank you for choosing [facility] for your healthcare needs today. Please realize that you were seen in the emergency department and that we are providing you with an emergency medical screening exam and this may not be a complete and all exclusive of all testing and/or medical workup we may need to determine your element or severity of your illness. It is very important that you follow-up as instructed with your primary care provider or specialist for the additional evaluation and to discuss your medical treatment plan. You may return to the emergency department should you have concerns or if your condition changes or worsens in any way. Coding Level of Care Code ED Manager [facility]
[2024-03-14 17:30] LABS: Basophils # 0.1 10^3/uL (0.0-0.1); Basophils % 0.8 %; Eosinophils # 0.7 10^3/uL (0.0-0.8); Eosinophils % 6.9 %; Hematocrit 25.7 % (37-53); Lymphocytes % 18.7 %; Mean Corpuscular HGB Conc 31.9 g/dL (30-55); Mean Corpuscular Hemoglobin 26.6 pg (27-33); Mean Corpuscular Volume 83.4 fl (82-101); Mean Platelet Volume 8.7 fL (7.4-10.4); Monocytes # 1.2 10^3/uL (0.2-0.9); Monocytes % 11.7 %; Neutrophils # 6.45 10^3/uL (1.8-7.7); Neutrophils % 61.6 %; Nucleated Red Blood Cells % 0 %; Platelet Count 497 10^3/cmm (157-399); Red Blood Count 3.08 10^6/uL (3.85-5.65); Red Cell Distribution Width 14.5 % (12.1-15.1); White Blood Count 10.45 10^3/uL (3.29-11.43)
[2024-03-14 17:47] LABS: Lactic Sepsis W/Reflex 1.1 mmol/L (0.5-2.2)
[2024-03-14 17:56] VITALS: BP 128/80; PULSE 96; RESP 16; O2SAT 99
[2024-03-14 17:59] LABS: Alanine Aminotransferase 20 U/L (0-41); Albumin Level 3.9 g/dL (3.5-5.2); Alkaline Phosphatase 81 U/L (40-130); Anion Gap 18.5 (5-19); Aspartate Amino Transferase 26 U/L (0-40); Blood Urea Nitrogen 17 mg/dL (8-23); Calcium 8.9 mg/dL (8.5-10.5); Carbon Dioxide 24 mmol/L (22-29); Chloride 104 mmol/L (98-107); Creatinine Clr Calc Pharmacy 80.3093; Globulin 2.8 g/dL (1.3-4.6); Glucose 115 mg/dL (65-115); NT Pro B Type Natriuretic Pept 203 pg/mL (0-125); Osmolality Calculated 296 mOsm/kg (285-295); Potassium 4.5 mmol/L (3.5-5.1); Sodium 142 mmol/L (136-145); Total Bilirubin 0.3 mg/dL (0.15-1.2); Total Protein 6.7 g/dL (6.6-8.7)
[2024-03-14 18:00] LABS: Ammonia 18 umol/L (16-60)
[2024-03-14 19:15] VITALS: BP 112/86; PULSE 78; RESP 18; O2SAT 95
[2024-03-14 20:28] VITALS: BP 110/86; PULSE 89; O2SAT 98
== END 2024-03-14 20:29 | disposition home or self-care (01) ==
PROVIDERS: Emergency Provider Emergency Medicine
DX: F03.B0 Unspecified dementia, moderate, without behavioral disturbance, psychotic disturbance, mood disturbance, and anxiety (principal); J44.9 Chronic obstructive pulmonary disease, unspecified; Z87.891 Personal history of nicotine dependence
CPT/HCPCS: 36415; 70450; 71045; 80053; 82140; 83605; 83880; 85025; 99284

== ENCOUNTER 2024-04-05 14:05 | Outpatient (CLI) | payer MEDICARE, MEDICAID, SELFPAY ==
--- NOTE | 2024-04-05 14:30 | MR_ITS ---
WS: [id number] MRI BRAIN WITHOUT CONTRAST HISTORY: AMS COMPARISON: Noncontrast CT head 03/14/2024 TECHNIQUE: Diffusion imaging, multiplanar T1, T2 and FLAIR imaging obtained. No diffusion abnormality. No ischemia. Mild volume loss and atrophy. Moderate periventricular white m atter disease. 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 No acute blood products. Mild cerebe llar atrophy. Ventricles and extra-axial spaces are prominent on the basis of atrophy. No inferior displacement of cerebellar tonsils. The sella turcica and pituitary gland are unremarkabl e. Dural venous sinuses and [place] demonstrate no abnormality on this unenhanced studies. Norm al flow voids. Paranasal sinuses: Clear. Mastoid air cells: Normal. Calvarium and scalp: Intact. MR/MR head wo con* [id number] IMPRESSION: 1. No acute infarct. Diffusion imaging is normal. 2. Mild atrophy with moderate small vessel ischemic disease. Prior lacunar inf arct in the LEFT insular ribbon. 3. Mild ventriculomegaly on the basis of atrophy.
== END 2024-04-05 14:06 | disposition home or self-care (01) ==
LOC: RAD 14:05
PROVIDERS: PCP Student in an Organized Health Care Education/Training Program; Visit Provider Student in an Organized Health Care Education/Training Program
DX: R29.6 Repeated falls (principal); R94.02 Abnormal brain scan
CPT/HCPCS: 70551

== ENCOUNTER 2024-04-10 07:41 | Outpatient (CLI) | payer MEDICARE, MEDICAID, SELFPAY ==
--- NOTE | 2024-04-10 07:59 | USCV_ITS ---
Diogo Suarez Age: 73 Gender: M : 1950 Exam Date: 04/10/2024 08:26 Ordering Phys: Kye Chavez Technologist: CT Exam Location: [facility] [place] Indication: pulm fibrosis BP: / HR: 104 Rhythm: Sinus Technical Quality: Adequate MEASUREMENTS (Male / Female) Normal Values 2D ECHO LVOT Diameter 2.0 cm LV Ejection Fraction MOD 4C 61.3 % LV Ejection Fraction MOD 2C 65.1 % LV Ejection Fraction 2C AL 65.6 % LA Diameter 3.8 cm RA Systolic Volume 4C AL 42.3 ml RA Systolic Volume 4C MOD 41.1 ml LA Sys Volume AL 44.5 cm cubed LA Sys Volume Index AL 22.9 cm cubed/m squared Aorta at Sinotubular Diameter 2.3 cm M-MODE LA Ao Ratio MM 1.5 AV Cusp Separation MM 1.8 cm DOPPLER AV Peak Velocity 143.0 cm/s LVOT Peak Velocity 118.0 cm/s AV Area Cont Eq vti 2.7 cm squared AV Area Cont Eq pk 2.7 cm squared MV Peak Velocity 125.0 cm/s MV Area PHT 4.3 cm squared Mitral E to A Ratio 0.8 TR Peak Velocity 313.0 cm/s TR Peak Gradient 39.2 mmHg TR Mean Velocity 246.0 cm/s TR Mean Gradient 25.6 mmHg TR Velocity Time Integral 68.2 cm TV Peak E Velocity 66.0 cm/s Right Atrial Pressure 3.0 mmHg Pulmonary Artery Systolic Pressu 42.2 mmHg PV Peak Velocity 102.0 cm/s FINDINGS Left Ventricle Normal left ventricular size and systolic function, EF 65%.. No regional wall motion abnormalities. Grade I/IV diastolic dysfunction (abnormal relaxation filling pattern), normal to mildly elevated filling pressures. Right Ventricle The right ventricle is normal in size and function. Right Atrium The right atrium is normal in size. Left Atrium The left atrium is normal in size. Mitral Valve Mild mitral valve regurgitation. Aortic Valve No gross abnormalities noted Tricuspid Valve Trace tricuspid valve regurgitation. Pulmonic Valve No gross abnormalities noted Pericardium Normal pericardium without effusion. Aorta Normal ascending aorta dimension. IVC Inferior vena cava not visualized. CONCLUSIONS Normal left ventricular size and systolic function, EF 65%.. No regional wall motion abnormalities. Grade I/IV diastolic dysfunction (abnormal relaxation filling pattern), normal to mildly elevated filling pressures. Mild mitral valve regurgitation. Trace tricuspid valve regurgitation. Estimated pulmonary artery peak systolic pressure 42 mmHg There is no pericardial effusion. There are no intracardiac masses. No similar previous studies are available for comparison Dr Mer Centeno MD [facility] (Electronically Signed) Final Date: 16 April 2024 09:27 S
== END 2024-04-10 07:42 | disposition home or self-care (01) ==
PROVIDERS: PCP Student in an Organized Health Care Education/Training Program; Visit Provider Student in an Organized Health Care Education/Training Program
DX: I50.30 Unspecified diastolic (congestive) heart failure (principal); J84.10 Pulmonary fibrosis, unspecified; R60.9 Edema, unspecified
CPT/HCPCS: 93306

== ENCOUNTER 2025-01-16 15:19 | Emergency (ER) | payer OTHER, MEDICAID, SELFPAY ==
[2025-01-16 15:20] VITALS: PULSE 91; RESP 16; TEMP 36.4; O2SAT 93
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
[2025-01-16 15:33] VITALS: BP 149/75
--- NOTE | 2025-01-16 15:33 | XR_ITS ---
WS: [id number] Portable AP upright chest, 01/16/2025 Clinical Data: screen Comparison: Portable chest, 03/14/2024 Findings: No nodules, masses or effusions are seen. The heart is normal. The pulmonary vascularity is not increased. No pneumonia or pneumothorax is seen. There is minimal right midlung atelectasis. The aortic arch and descending thoracic aorta show minimal calcification and tortuosity. XR/XR chest 1V portable [id number] Impression: Atherosclerosis.
[2025-01-16 15:54] LABS: Hematocrit 42.8 % (37-53); Hemoglobin 13.60 g/dL (11.27-16.99); Mean Corpuscular HGB Conc 31.8 g/dL (30-55); Mean Corpuscular Hemoglobin 26.1 pg (27-33); Mean Corpuscular Volume 82.1 fl (82-101); Nucleated Red Blood Cells % 0 %; Platelet Count 363 10^3/cmm (157-399); Red Blood Count 5.21 10^6/uL (3.85-5.65); White Blood Count 11.41 10^3/uL (3.29-11.43)
--- NOTE | 2025-01-16 16:24 | PC.PHAR ---
Pt is from [facility]
[2025-01-16 16:26] LABS: Alanine Aminotransferase 19 U/L (0-41); Albumin Level 4.0 g/dL (3.5-5.2); Alkaline Phosphatase 105 U/L (40-130); Anion Gap 19.3 (5-19); Aspartate Amino Transferase 25 U/L (0-40); Blood Urea Nitrogen 14 mg/dL (8-23); Calcium 9.5 mg/dL (8.5-10.5); Carbon Dioxide 23 mmol/L (22-29); Chloride 100 mmol/L (98-107); Creatinine Clr Calc Pharmacy 86.2760; Globulin 3.9 g/dL (1.3-4.6); Glucose 95 mg/dL (65-115); Osmolality Calculated 286 mOsm/kg (285-295); Potassium 4.3 mmol/L (3.5-5.1); Sodium 138 mmol/L (136-145); Thyroid Stimulating Hormone 3.84 uIU/mL (0.27-4.20); Total Protein 7.9 g/dL (6.6-8.7)
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
[2025-01-16 16:32] LABS: Acetaminophen < 5.0 ug/mL (10-30); Alcohol Level < 10 mg/dL (0-10); Salicylate < 0.3 mg/dL (3-10)
[2025-01-16 16:59] VITALS: RESP 18
[2025-01-16 17:05] LABS: Glucose Urine UA Negative (Normal); Nitrate Urine Negative (Negative); Specific Gravity, Urine 1.011 (1.005-1.030)
[2025-01-16 17:13] LABS: Add Urine Microscopic? YES
[2025-01-16 17:15] LABS: PCP Screen Urine Negative (Negative)
--- NOTE | 2025-01-16 19:05 | ECG_ITS ---
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 Measurements Intervals [place] Rate: 109 P: 68 MN: 147 QRS: -41 QRSD: 99 T: 75 QT: 325 QTc: 439 Interpretive Statements SINUS TACHYCARDIA LEFT AXIS DEVIATION [QRS AXIS < -30] INCOMPLETE RIGHT BUNDLE BRANCH BLOCK [90+ ms QRS DURATION, TERMINAL R IN V1/V2, 40+ ms S IN I/aVL/V4/V5/V6] Compared to ECG 09/23/2023 15:48:45 Left-axis deviation now present Incomplete right bundle-branch block now present Myocardial infarct finding no longer present Electronically Signed On 01-17-2025 09:02:09 CDT by Salvador Yeh M.D. [email or web address]
[2025-01-16 19:50] LABS: Respiratory Syncytial Virus Ce NEGATIVE (Negative); SARS-CoV-2 PCR NEGATIVE (Negative)
[2025-01-16 22:39] VITALS: BP 112/62; PULSE 96; RESP 15; O2SAT 95
== END 2025-01-16 22:52 ==
PROVIDERS: Family Medicine; Emergency Provider Family Medicine; PCP Student in an Organized Health Care Education/Training Program
DX: Z13.30 Encounter for screening examination for mental health and behavioral disorders, unspecified (principal); F03.918 Unspecified dementia, unspecified severity, with other behavioral disturbance; Z11.52 Encounter for screening for COVID-19; J44.9 Chronic obstructive pulmonary disease, unspecified
CPT/HCPCS: 71045; 80053; 80306; 80307; 81001; 84443; 85025; 87637; 93005; 99285